=== PATIENT | male | born 1955 | race Asian ===

== ENCOUNTER 2018-01-31 09:29 | Inpatient (IN) | payer SELFPAY ==
[~2018-01-31] VITALS: Ht 165.1 cm; Wt 67.6 kg
--- NOTE | 2018-01-31 09:29 | NUR ---
PT BIBA BLS TO BED 4
[2018-01-31 09:30] VITALS: BP 131/81
--- NOTE | 2018-01-31 09:30 | NUR ---
[facility] to bed [facility] on 5150 gravely disable adult. no suicidal/homicidal. place close to nurses station
--- NOTE | 2018-01-31 09:30 | NUR ---
DR ROYAL EVALUATING AT BEDSIDE
--- NOTE | 2018-01-31 09:31 | NUR ---
MALE PT OF UNKNOWN AGE BIBA FOR 5150 FOR GRAVELY DISABLED. 5150 PLACED BY HANDY CROWDER. EMS STATES HE WAS FOUND ON [facility], HANDY CROWDER WAS UNABLE TO OBTAIN ANY IDENTIFICATION. PT HAS DISHEVELED APPEARANCE AND SPEAKS INTERMITTENT TOGOLESE. R BKA. PT IS GIVING MULTIPLE DOBs WITH NO YR. LS CLEAR THROUOUT, BS PAPOTICE X4, SKIN INTACT. NO INJURIES NOTED. ER MD MADE AWARE. WILL CONTINUE TO MONITOR .
--- NOTE | 2018-01-31 09:39 | NUR ---
XRAY AT BEDSIDE
--- NOTE | 2018-01-31 09:45 | NUR ---
LAB AT BEDSIDE
[2018-01-31 09:57] LABS: BASOPHILS % (AUTO) 0.5 % (0.0-2.0); EOSINOPHILS # (AUTO) 0.2 K/uL (0-0.4); EOSINOPHILS % (AUTO) 3.2 % (0.0-4.0); HEMATOCRIT 42.6 % (36-52); HEMOGLOBIN 13.9 g/dL (12.0-18.0); LYMPHOCYTES # (AUTO) 1.1 K/uL (2.0-11.5); LYMPHOCYTES % (AUTO) 20.5 % (20.5-51.1); MEAN CORPUSCULAR HEMOGLOBIN 30 pg (27-31); MEAN CORPUSCULAR HGB CONC 33 g/dL (33-37); MONOCYTES # (AUTO) 0.4 K/uL (0.8-1.0); MONOCYTES % (AUTO) 7.2 % (1.7-9.3); NEUTROPHILS # (AUTO) 3.8 K/uL (1.8-7.7); NEUTROPHILS % (AUTO) 68.6 % (42.2-75.2); PLATELET COUNT (AUTO) 265 K/uL (140-450); RED BLOOD CELL COUNT(AUTO) 4.58 MIL/uL (4.20-6.10); WHITE BLOOD COUNT (AUTO) 5.5 K/uL (4.8-10.8)
--- NOTE | 2018-01-31 09:59 | NUR ---
ATTEMPTED TO COMMUNICATE TO PT WITH A TELUGU TRANSLATION. MECHANICAL PROJECT ENGINEER STATED PT DID NOT SPEAK ANY TELUGU WORDS
[2018-01-31 10:01] LABS: ANION GAP 11.5 (8-16); CHLORIDE 101 mmol/L (98-107); GFR ARICAN-AMERICAN 98 mL/min (>90); GLUCOSE 176 mg/dL (74-106); POTASSIUM 3.5 mmol/L (3.5-5.1); SODIUM SERUM 136 mmol/L (136-145); UREA NITROGEN, BLOOD 12 mg/dL (7-18)
--- NOTE | 2018-01-31 10:05 | NUR ---
PT OFFERED WIPES TO CLEAN SELF.
[2018-01-31 10:16] LABS: ALBUMIN 3.7 g/dL (3.4-5.0); ASPARTATE AMINOTRANSFERASE 15 U/L (15-37); TOTAL BILIRUBIN 0.5 mg/dL (0.0-1.0)
--- NOTE | 2018-01-31 10:19 | NUR ---
PT GIVEN FOOD TRAY.
[2018-01-31 10:23] LABS: ACETAMINOPHEN < 0.5 ug/ml (10-30); SALICYLATE < 2.8 mg/dL (2.8-20.0)
--- NOTE | 2018-01-31 10:45 | NUR ---
ROSA CROWDER CALLED FOR PT ID. PD STATES THAT THEY DO NOT HAVE HIM IN THEIR SYSTEM
--- NOTE | 2018-01-31 11:10 | NUR ---
[address] ROYAL TO CALL FACILITIES DIRECTLY TO FIND PLACEMENT
--- NOTE | 2018-01-31 11:52 | NUR ---
PT IS YELLING, AND IS COMBATIVE. PT IS VERBLALLY ABUSIVE TOWARD STAFF. SECURITY WAS CALLED '
--- NOTE | 2018-01-31 11:54 | NUR ---
PT IS SPITTING AT STAFF
[2018-01-31] MEDS ORDERED: HALOPERIDOL IM 5 MG/ML VIAL IM ONE (11:55)
--- NOTE | 2018-01-31 11:55 | NUR ---
PT ATTEMPTING TO HIT STAFF WITH PERSONAL BELONGINGS
--- NOTE | 2018-01-31 12:50 | NUR ---
PT RESTING WITH EYES CLOSED, EASILY AROUSED. PT REFUSING TO PROVIDE URINE SAMPLE
[2018-01-31] MEDS ORDERED: HYDROcodone/APAP 7.5/325 MG 1 TAB PO PRN (13:50)
[2018-01-31] MEDS ORDERED: DOCUSATE SODIUM 100 MG GELCAP PO PRN (13:50)
--- NOTE | 2018-01-31 14:29 | NUR ---
PT IS REFUSING TO PROVIDE URINE SAMPLE AND IV START
[2018-01-31 14:42] LABS: CHOL/HDL RATIO 5.1 (1-4.5); MAGNESIUM 1.7 mg/dL (1.8-2.4); PHOSPHORUS 3.5 mg/dL (2.5-4.9); PROTHROMBIN TIME 10.6 secs (10.8-13.4)
--- NOTE | 2018-01-31 14:45 | NUR ---
PT ARRIVED ON THE UNIT WITH 2 ER NURSES. PT IS AWAKE. INTRODUCED MYSELF AND UPDATED THE BOARD. NOT MUCH IS KNOWN RE PT. NO NAME, NO ADDRESS, OBEYS SIMPLE COMMANDS. PT ON ROOM AIR. NO IV ACCESS. ER WAS UNABLE TO ASSESS ONE D/T PT REFUSING; PT SPEAKS IN A NOOKSACK LANGUAGE BUT UNSURE WHAT IT IS. PT HAS R BELOW THE KNEE AMPUTATION. SKIN INTACT. NO OPEN WOUNDS. OLD SCARS, HEALED OVER. PT IS SLEEPING. NO SIGNS OF DISTRESS. MRSA DONE. YELLOW SOCK ON. WILL CONTINUE TO MONITOR PT.
--- NOTE | 2018-01-31 14:54 | NUR ---
Patient will be admitted to care of DR JACOB. Admited to TELE. Will go to room 123B. Belongings list completed. Report to BRANDNE HYMAN.
[2018-01-31 15:00] VITALS: BP 125/73
[2018-01-31] MEDS: NACL 0.9% 1,000 ML IV SCH ×2 (15:55→23:47)
[2018-01-31 16:00] VITALS: BP 135/78
--- NOTE | 2018-01-31 16:45 | NUR ---
PT SLEEPING. NO SIGNS OF DISTRESS. WILL CONTINUE TO MONITOR PT.
--- NOTE | 2018-01-31 18:21 | NUR ---
PT IS MORE ALERT. ATE 100% OF DINNER. MORE RESPONSIVE. EXPLAINED TO HIM TO USE THE URINAL AND CALL US FOR BM. VERBALIZED UNDERSTANDING.
--- NOTE | 2018-01-31 19:08 | NUR ---
ENDORSED PT TO THE PAPER GOODS MACHINE SET UP OPERATOR NURSE AT BEDSIDE FOR CONTINUITY OF CARE. PT IS IN STABLE CONDITION.
--- NOTE | 2018-01-31 19:09 | NUR ---
PATIENT REPORT RECEIVED FROM MORNING NURSE AT BEDSIDE. PATIENT IS ASLEEP. NO SIGNS AND SYMPTOMS OF DISTRESS NOTED. BREATHING EVEN AND UNLABORED. RIGHT BKA NOTED. NO IV SITE DUE TO PATIENT REFUSAL. BED IN LOWEST POSITION, SIDE RAILS UP AND CALL LIGHT WITHIN REACH. WILL CONTINUE TO MONITOR
[2018-01-31] MEDS ORDERED: DEXTROSE 50% 50 ML SYR IVP PRN (19:35)
--- NOTE | 2018-01-31 19:45 | NUR ---
PATIENT LET ME CHECK BLOOD GLUCOSE. BS-284. REFUSED INSULIN. KEPT YELLING "NO,NO,NO!" NOTIFIED DR. REIS.
--- NOTE | 2018-01-31 19:50 | NUR ---
PATIENT HAD A BOWEL MOVEMENT AT THE BEDSIDE COMMODE. SHEETS WERE DIRTY SO ME AND THE PHOTOVOLTAIC TECHNICIAN TRIED TO CHANGE THEM. PATIENT REFUSED. JUMPED ON TOP OF THE BED AND STARTED YELLING AT US IN EEK LANGUAGE. WILL NOTIFY
[2018-01-31] MEDS: BLOOD GLUCOSE MONITORING 1 DEV DEV FS SCH (19:52)
[2018-01-31 20:00] VITALS: BP 121/61
--- NOTE | 2018-01-31 20:11 | NUR ---
PATIENT SEEN BY DR. REIS
--- NOTE | 2018-01-31 20:30 | NUR ---
DR REIS AWARE THAT PATIENT REFUSED IV SITE. UNABLE TO ADMINISTER MAG RIDER
[2018-01-31] MEDS ORDERED: QUEtiapine FUMARATE 100 MG TAB PO SCH ×2 (21:00→22:00)
[2018-01-31] MEDS ORDERED: MAG SULF 2000 MG/WATER PREMIX 50 ML IV SCH (21:00)
[2018-01-31] MEDS ORDERED: HALOPERIDOL IM 5 MG/ML VIAL IM SCH (21:00)
[2018-01-31] MEDS ORDERED: HALOPERIDOL IM 5 MG/ML VIAL IM PRN (21:05)
--- NOTE | 2018-01-31 22:30 | NUR ---
PATIENT HAD A BOWEL MOVEMENT IN THE RESTROOM. BEDSHEET AND CHUCKS CHANGED. GAVE PATIENT WIPES. PATIENT DID HIS OWN PERICARE. GAVE PATIENT NEW GOWN AND NEW UNDERWEAR. PATIENT TOLERATED WELL. WILL CONTINUE TO MONITOR.
--- NOTE | 2018-01-31 22:45 | NUR ---
US TECH CALLED AND SAID TO KEEP PT NPO AFTER MIDNIGHT FOR COMPLETE US ABDOMEN IN THE AM. NOTIFIED DR. REIS
[2018-02-01] VITALS: BP 125/69
--- NOTE | 2018-02-01 | NUR ---
PATIENT REFUSED CT AT THIS TIME. WILL TRY AND ASK AGAIN LATER.
--- NOTE | 2018-02-01 00:50 | NUR ---
There are no available beds open for placement at this time., will continue calling for placement .
--- NOTE | 2018-02-01 02:00 | NUR ---
CHECKED ON PATIENT. PATIENT IS ASLEEP. NO SIGNS AND SYMPTOMS OF DISTRESS NOTED. BREATHING EVEN AND UNLABORED WILL CONTINUE TO MONITOR.
[2018-02-01 05:00] VITALS: BP 148/74
[2018-02-01] MEDS: INSULIN LISPRO SLIDING SCALE 100 UNITS/ML VIAL SUBQ PRN ×2 (05:19→21:19)
--- NOTE | 2018-02-01 05:30 | NUR ---
ASKED PATIENT IF I CAN INSERT IV SITE PATIENT STATED YES. GATHERED MY MATERIALS. WHEN I CAME BACK TO THE ROOM. BRUSH PAINTER TRIED TO DRAW LABS, ATTEMPTED SEVERAL TIMES, BUT UNABLE TO DRAW BLOOD. PATIENT GOT FRUSTRATED AND STARTED YELLING. NO AM LABS DRAWN AT THIS TIME. UNABLE TO DO IV INSERTION.
[2018-02-01] MEDS: BLOOD GLUCOSE MONITORING 1 DEV DEV FS SCH ×4 (06:05→21:20)
--- NOTE | 2018-02-01 07:16 | NUR ---
PATIENT REPORT GIVEN TO MORNING NURSE AT BEDSIDE. PATIENT IS IN STABLE CONDITION
--- NOTE | 2018-02-01 07:17 | NUR ---
RECEIVED REPORT FROM LODE MINER BLASTING NURSE FOR CONTINUITY OF CARE. VS SIGNS WITHIN NORMAL LIMITS. PT FELL BACK ASLEEP AFTER VITALS WERE TAKEN. SKIN INTACT. NO IV ACCESS. NOTED R BKA. PT HAS BEEN NPO SINCE MIDNIGHT. WAITING FOR AN US OF THE ABDOMEN. UPDATED THE BOARD. NO SIGNS OF DISTRESS AND NO COMPLAINTS. WILL CONTINUE TO MONITOR.
[2018-02-01 08:00] VITALS: BP 121/57
--- NOTE | 2018-02-01 08:03 | NUR ---
PT REFUSED ABDOMINAL US. WILL PUT IN ORDERS FOR BREAKFAST.
[2018-02-01] MEDS ORDERED: SERTRALINE 50 MG TAB PO SCH (09:00)
[2018-02-01] MEDS ORDERED: risperiDONE 1 MG TAB PO SCH (09:00)
[2018-02-01] MEDS: MAGNESIUM OXIDE 400 MG TAB PO SCH (09:01)
[2018-02-01] MEDS: risperiDONE 1 MG TAB PO SCH ×4 (09:01→21:26)
--- NOTE | 2018-02-01 09:05 | NUR ---
ADMINISTERED MORNING MEDS. PT TOLERATED WELL. WILL CONTINUE TO MONITOR PT.
--- NOTE | 2018-02-01 09:09 | NUR ---
PATIENT HAS BEEN SCREENED AND CATEGORIZED MODERATE NUTRITION RISK. PATIENT WILL BE SEEN WITHIN 3-5 DAYS OF ADMISSION. 02/03/18 02/05/[address]
[2018-02-01] MEDS: NACL 0.9% 1,000 ML IV SCH ×2 (09:47→21:27)
--- NOTE | 2018-02-01 10:55 | NUR ---
PT IS IN BED ASLEEP. NO SIGNS OF DISTRESS OR DISCOMFORT. WILL CONTINUE TO MONITOR.
--- NOTE | 2018-02-01 11:45 | NUR ---
P.T. NOTES RECEIVED P.T. EVAL ORDER, CHART REVIEWED, PT FOUND ASLEEP, EASILY ROUSABLE HE RESPONDS BUT KEEPS EYES CLOSED, PATIENT IS HIGHLY IRRITABLE, STARTED TO SHOUT AFTER SEVERAL QUESTIONS ASKED. STATES HIS NAME IS "LUBA" BUT WHEN ASKED FOR LAST NAME HE MUMBLES INCOMPREHENSIBLE WORDS. THIS P.T. EXPLAINED P.T. GOAL AND RATIONALE PER MD ORDERS PT SHOUTED "NO!" STAYED IN A POSITION AND EYES KEPT CLOSED. DUE TO POOR COOPERATION DESPITE ENCOURAGEMENT UNABLE TO PERFORM P.T. EVAL AT THIS TIME. BOOGIE OTERO MADE AWARE AND AGREEABLE.
--- NOTE | 2018-02-01 12:20 | NUR ---
ADMINISTERED INSULIN 6 UNITS TO PT FOR BS OF 296. PT IS STILL RESTING COMFORTABLY AND SLEEPING. WILL CONTINUE TO MONITOR.
--- NOTE | 2018-02-01 15:00 | NUR ---
A CONTROL VALVE MECHANIC OF DR PEREZ CAME TO DO AN EVALUATION ON PT.
--- NOTE | 2018-02-01 16:00 | NUR ---
PT REFUSED VS CHECK AND BS CHECK.
--- NOTE | 2018-02-01 19:28 | NUR ---
ENDORSED PT TO CUSTOMER SERVICE TRAINER NURSE AT BEDSIDE. PT IN STABLE CONDITION.
--- NOTE | 2018-02-01 19:29 | NUR ---
RECEIVED REPORT FROM DAY SHIFT NURSE BRANDEN-BOOGIE. PATIENT IS ASLEEP. AOX1-UNKNOWN LANGUAGE, ON ROOM AIR-BREATHING EVEN AND UNLABORED. NO IV SITE DUE TO PATIENT REFUSAL. RIGHT BKA NOTED. DISCUSSED PLAN OF CARE HOWEVER UNABLE TO UNDERSTAND PT. WHITE BOARD UPDATED. BED IN LOWEST POSITION, SIDE RAILS UP, BED BREAKS ON, BED ALARM ON. BED SIDE TABLE AND CALL LIGHT WITHIN REACH. WILL CONTINUE TO MONITOR
[2018-02-01 20:00] VITALS: BP 120/58
--- NOTE | 2018-02-01 20:15 | NUR ---
VITAL SIGNS TAKEN AND TOLERATED WELL. BLOOD GLUCOSE 208-WILL ADMINISTER INSULIN. PT TOLERATED WELL. NO S/S OF RESPIRATORY DISTRESS OR DISCOMFORT NOTED AT THIS TIME. WILL CONTINUE TO MONITOR.
[2018-02-01] MEDS ORDERED: QUEtiapine FUMARATE 100 MG TAB PO SCH (21:00)
--- NOTE | 2018-02-01 21:00 | NUR ---
PT REFUSED SCHEDULED MEDICATION. NO S/S OF RESPIRATORY DISTRESS OR DISCOMFORT NOTED AT THIS TIME. WILL CONTINUE TO MONITOR.
--- NOTE | 2018-02-01 22:00 | NUR ---
ALMA LIBERTY ASSISTED PT WITH BED CHUX CHANGED THEY WERE SOILED HOWEVER PT DISLIKED IT AND ONLY WANTED TO RETURN BACK TO SLEEP. DIFFICULT TO COMMUNICATE WITH PT. WILL CONTINUE TO MONITOR.
[2018-02-02] VITALS: BP 129/66
--- NOTE | 2018-02-02 | NUR ---
VITAL SIGNS TAKEN AND TOLERATED WELL. NO S/S OF RESPIRATORY DISTRESS OR DISCOMFORT NOTED AT THIS TIME. WILL CONTINUE TO MONITOR.
--- NOTE | 2018-02-02 02:00 | NUR ---
PT SLEEPING AT THIS TIME. NO S/S OF RESPIRATORY DISTRESS OR DISCOMFORT NOTED AT THIS TIME. WILL CONTINUE TO MONITOR.
--- NOTE | 2018-02-02 04:00 | NUR ---
PT CONTINUES TO SLEEP AT THIS TIME. NO S/S OF RESPIRATORY DISTRESS OR DISCOMFORT NOTED AT THIS TIME. WILL CONTINUE TO MONITOR.
[2018-02-02] MEDS: NACL 0.9% 1,000 ML IV SCH ×2 (05:47→15:47)
--- NOTE | 2018-02-02 05:50 | NUR ---
BLOOD GLUCOSE 172-INSULIN COVERAGE NEEDED HOWEVER PT REFUSED. PT RETURNED BACK TO SLEEP. NO S/S OF RESPIRATORY DISTRESS OR DISCOMFORT NOTED AT THIS TIME. WILL CONTINUE TO MONITOR.
[2018-02-02] MEDS: BLOOD GLUCOSE MONITORING 1 DEV DEV FS SCH ×4 (06:21→21:00)
[2018-02-02 06:47] LABS: BASOPHILS # (AUTO) 0.1 K/uL (0.00-0.22); EOSINOPHILS # (AUTO) 0.2 K/uL (0-0.4); EOSINOPHILS % (AUTO) 2.7 % (0.0-4.0); HEMATOCRIT 41.8 % (36-52); HEMOGLOBIN 13.8 g/dL (12.0-18.0); LYMPHOCYTES # (AUTO) 1.6 K/uL (2.0-11.5); LYMPHOCYTES % (AUTO) 24.3 % (20.5-51.1); MEAN CORPUSCULAR HEMOGLOBIN 31 pg (27-31); MEAN CORPUSCULAR HGB CONC 33 g/dL (33-37); MEAN CORPUSCULAR VOLUME 93.5 fL (80-94); MONOCYTES # (AUTO) 0.5 K/uL (0.8-1.0); MONOCYTES % (AUTO) 8.3 % (1.7-9.3); NEUTROPHILS # (AUTO) 4.1 K/uL (1.8-7.7); NEUTROPHILS % (AUTO) 63.7 % (42.2-75.2); PLATELET COUNT (AUTO) 243 K/uL (140-450); RED BLOOD CELL COUNT(AUTO) 4.47 MIL/uL (4.20-6.10); RED CELL DISTRIBUTION WIDTH 13.8 % (11.6-13.7); WHITE BLOOD COUNT (AUTO) 6.4 K/uL (4.8-10.8)
[2018-02-02 07:16] LABS: ANION GAP 13.2 (8-16); CARBON DIOXIDE 26.8 mmol/L (21-32); CREATININE 0.9 mg/dL (0.7-1.3)
--- NOTE | 2018-02-02 07:35 | NUR ---
ENDORSED PT CARE TO DAY SHIFT NURSE GINGER-BOOGIE FOR CONTINUITY OF CARE.
[2018-02-02 08:00] VITALS: BP 142/72
--- NOTE | 2018-02-02 08:00 | NUR ---
PATIENT AWAKE, CONFUSED. RESPIRATION EVEN, UNLABOR ON ROOM AIR. SKIN DRY AND WARM. REFUSED TO HAVE STAFF DO HEAD TO TOE ASSESSMENT, OR FINISH CHECKING VITAL SIGN. PATIENT BECAME AGITATED WHEN STAFF TRIED TO EXPLAIN THE NEED FOR ASSESSMENT. WILL CONTINUE TO MONITOR
--- NOTE | 2018-02-02 09:10 | NUR ---
PT NOTE 0900 CHART REVIEWED; CLEARED TO BE SEEN FOR PT PER RN, WHO STATES THAT Pt WAS NOTED TO BE AMBULATING HOPPING FROM BATHROOM ON HIS OWN EARLIER THIS MORNING. Pt WAS SEEN ASLEEP BUT RESPONDS TO QUESTIONS, MAINTAINED EYES CLOSED. Pt REFUSED TO BE SEEN FOR PT EVAL DESPITE OF EDUCATION ON BENEFIT OF OOB PARTICIPATION WITH PHYSICAL THERAPY. WILL FOLLOW UP W/Pt, RN NOTIFIED.
[2018-02-02] MEDS: MAGNESIUM OXIDE 400 MG TAB PO SCH (09:17)
[2018-02-02] MEDS: risperiDONE 1 MG TAB PO SCH ×2 (09:17→21:00)
--- NOTE | 2018-02-02 12:16 | NUR ---
PATIENT REFUSED TO HAVE INSULIN GIVEN. RISKS OF HIGH BLOOD SUGAR WERE EXPLAINED TO THE PATIENT. PATIENT STARTED SCREAMING NO INSULIN.
--- NOTE | 2018-02-02 14:40 | NUR ---
PATIENT IS SLEEPING COMFORTABLY. RESPIRATION EVEN, UNLABOR ON ROOM AIR. NO DISTRESS NOTED AT THIS TIME
[2018-02-02 16:00] VITALS: BP 141/66
--- NOTE | 2018-02-02 16:00 | NUR ---
[facility] aware patient is on a 5150 hold. Not much information is being faxed over due to unknown information on the patient. No update on contacted facilities at this time. Will update [facility] when new information has been received.
--- NOTE | 2018-02-02 16:44 | NUR ---
PATIENT IS SLEEPING COMFORTABLY. RESPIRATION EVEN, UNLABOR ON ROOM AIR. DENIED PAIN AT THIS TIME. NO DISTRESS NOTED. CONTINUED TO REFUSE INSULIN, WILL NOTIFY
--- NOTE | 2018-02-02 17:54 | NUR ---
PATIENT REFUSED TO TAKE PO MED FOR HYPERGLYCEMIA. MD WAS AT BEDSIDE, EXPLAINED RISKS AND BENEFITS TO THE PATIENT. PATIENT CONTINUED VERBALIZING "NO".
--- NOTE | 2018-02-02 18:23 | NUR ---
PATIENT IS SLEEPING COMFORTABLY. RESPIRATION EVEN, UNLABOR ON ROOM AIR. NO DISTRESS NOTED AT THIS TIME. CALL LIGHT WITHIN REACH.
--- NOTE | 2018-02-02 19:14 | NUR ---
ENDORSEMENT GIVEN TO THE EQUESTRIAN TRAINER NURSE. PATIENT IS STABLE AT THIS TIME
--- NOTE | 2018-02-02 19:15 | NUR ---
RECEIVED REPORT FROM DAY SHIFT NURSE ERVIN-BOOGIE. PATIENT IS ASLEEP. AOX1-UNKNOWN LANGUAGE, ON ROOM AIR-BREATHING EVEN AND UNLABORED. NO IV SITE DUE TO PATIENT REFUSAL. RIGHT BKA NOTED. DISCUSSED PLAN OF CARE HOWEVER UNABLE TO UNDERSTAND PT. WHITE BOARD UPDATED. BED IN LOWEST POSITION, SIDE RAILS UP, BED BREAKS ON, BED ALARM ON. BED SIDE TABLE AND CALL LIGHT WITHIN REACH. PT REQUESTING ICE WATER FROM WHAT UNDERSTOOD. WILL PROVIDE AND CONTINUE TO MONITOR
--- NOTE | 2018-02-02 19:40 | NUR ---
PT REFUSING VITAL SIGNS AND BLOOD GLUCOSE CHECK. CONTINUES TO YELL "NO!" CHARGE NURSE MOLLY MUIR. WILL CONTINUE TO MONITOR.
--- NOTE | 2018-02-02 20:42 | NUR ---
PT CONTINUES TO REFUSE VITAL SIGNS, BLOOD GLUCOSE CHECK AND SCHEDULED MEDICATION. PT RESTING IN BED. NO S/S OF RESPIRATORY DISTRESS OR DISCOMFORT NOTED AT THIS TIME. WILL CONTINUE TO MONITOR.
--- NOTE | 2018-02-02 21:32 | NUR ---
PT CONTINUES TO REFUSE VITAL SIGNS, BLOOD GLUCOSE CHECKS AND SCHEDULED MEDICATION. KATARINA FARM FACILITY MANAGER ALSO TIRED TO SPEAK TO PT AND HE CONTINUES TO REFUSE. WILL CONTINUE TO MONITOR.
--- NOTE | 2018-02-03 | NUR ---
PT CONTINUES TO REFUSE VITAL SIGNS, BLOOD GLUCOSE CHECK AND SCHEDULED MEDICATION. PT CONTINUES TO SLEEP. NO S/S OF RESPIRATORY DISTRESS OR DISCOMFORT NOTED AT THIS TIME. WILL CONTINUE TO MONITOR.
--- NOTE | 2018-02-03 01:11 | NUR ---
[facility] IS TRYING TO LOCATE FACILITY. THERE HAVE BEEN NO UPDATES MADE TO NAME.
--- NOTE | 2018-02-03 01:20 | NUR ---
HOLD TO 02/03 AT 8:30AM. I CONTACTED MOLLY ON UNIT AND ADVISED.
[2018-02-03] MEDS: NACL 0.9% 1,000 ML IV SCH ×3 (01:47→21:47)
--- NOTE | 2018-02-03 02:00 | NUR ---
PT CONTINUES TO SLEEP IN BED. NO S/S OF RESPIRATORY DISTRESS OR DISCOMFORT NOTED AT THIS TIME. WILL CONTINUE TO MONITOR.
--- NOTE | 2018-02-03 04:00 | NUR ---
PT CONTINUES TO SLEEP IN BED. NO S/S OF RESPIRATORY DISTRESS OR DISCOMFORT NOTED AT THIS TIME. WILL CONTINUE TO MONITOR.
--- NOTE | 2018-02-03 05:33 | NUR ---
PT REFUSED BLOOD DRAW.
[2018-02-03] MEDS: BLOOD GLUCOSE MONITORING 1 DEV DEV FS SCH ×4 (06:17→20:25)
--- NOTE | 2018-02-03 06:18 | NUR ---
PT CONTINUES TO REFUSE BLOOD GLUCOSE CHECK, VITAL SIGNS AND MEDICATIONS. WILL CONTINUE TO MONITOR.
--- NOTE | 2018-02-03 07:20 | NUR ---
ENDORSED PT CARE TO DAY SHIFT NURSE YOU FOR CONTINUITY OF CARE.
--- NOTE | 2018-02-03 07:25 | NUR ---
RECEIVED REPORT FROM LAUNDRY PRICING CLERK NURSE, PT IS SLEEPING IN BED BUT EASILY AWAKEN, PT IS AAOX1, PT IS UNABLE TO AMBULATE, PT HAS A RT BELOW THE KNEE AMPUTATION, PT HAS NO IV ACCESS, NO S/S OF RESPIRATORY DISTRESS OR DISCOMFORT NOTED, DISCUSSED PLAN OF CARE WITH PT, PT UNABLE TO COMPREHEND, SAFETY/FALL PRECAUTIONS ARE IN PLACE, CALL LIGHT IS WITHIN REACH, WILL CONTINUE TO MONITOR.
--- NOTE | 2018-02-03 07:50 | NUR ---
RECEIVED REPORT FROM OPHTHALMIC PATHOLOGIST NURSE, PT IN BED EATING BREAKFAST, UPDATED BOARD, INTRODUCED SELF, SHOWED HOW TO USE CALL LIGHT, EXPLAINED PLAN OF CARE, WILL CONTINUE TO MONITOR.
[2018-02-03 08:00] VITALS: BP 148/89
[2018-02-03] MEDS: risperiDONE 1 MG TAB PO SCH ×2 (09:00→20:26)
[2018-02-03] MEDS: MAGNESIUM OXIDE 400 MG TAB PO SCH (09:00)
--- NOTE | 2018-02-03 09:15 | NUR ---
PT REFUSED ALL MEDS, PT STATED "NO" WHEN OFFERED MEDS. WILL CONTINUE TO MONITOR, CALL LIGHT WITHIN REACH.
--- NOTE | 2018-02-03 10:44 | NUR ---
Spoke to BOOGIE López in Tele Unit. We acknowledge that patients 5150 has today and that the MD's are making their rounds and plan of care orders today. Aware that their might be a language barrier and that patient at this time is not totally medically cleared. BOOGIE López will call back with update on how we will continue to assist in finding for placement if a new 5150 has been written for patient.
--- NOTE | 2018-02-03 12:15 | NUR ---
PT SITTING UP EATING LUNCH, REFUSED ALL MEDICATIONS, EDUCATED ABOUT PURPOSE AND NEED FOR MEDICATIONS, PT STATES< "NO THANK YOU." CALL LIGHT WITHIN REACH, BED IN LOWEST POSITION, WILL CONTINUE FREQ CHECKS.
--- NOTE | 2018-02-03 12:45 | NUR ---
CALL FROM [facility], SPOKE WITH BENITO, HE WANTED TO FOLLOW UP WITH PLAN OF CARE FOR PT REGARDING PLACEMENT AND STATUS OF 2ND PSY CONSULTATION. EXPLAINED WILL FOLLOW UP AND CALL BACK ONCE MORE INFORMATION IS COLLECTED FROM PT AND PLAN OF CARE IS UPDATED. BENITO: PHONE: FAX:
--- NOTE | 2018-02-03 13:24 | NUR ---
Chart reviewed by case investigator.
--- NOTE | 2018-02-03 15:00 | NUR ---
SPOKE TO DR. BERRY AND ASKED HIM IF THE PATIENT HAD HIS SECOND PSYCH EVALUATION DONE. PER DR. BERRY, PT HAS NOT HAD THE SECOND EVAL YET BUT HE DID NOTIFY THE [facility] DOCTOR ABOUT THE SECOND EVAL.
[2018-02-03 16:00] VITALS: BP 140/68
--- NOTE | 2018-02-03 16:00 | NUR ---
PT WROTE DOWN THAT NAME IS "DANDY" AND "12/28/1916. WILL CONTINUE TO COLLECT INFORMATION.
--- NOTE | 2018-02-03 16:33 | NUR ---
CALL EILEEN FROM [facility], UPDATED THAT PT IS TO BE RE-EVALUATED FOR 5150. EXPLAINED THAT PT STATED HIS NAME/, HOWEVER EILEEN REQUESTED THAT WE SEND A FACESHEET VIA FAX ONCE PSY CONSULTATION IS CLEARED, ALSO PLEASE INDICATE CHARLES ADDITIONAL INFORMATION ONCE COLLECTED. PHONE: FAX:
--- NOTE | 2018-02-03 19:26 | NUR ---
REPORT GIVEN TO CLOTH BALE HEADER NURSE, PT STABLE, WILL CONTINUE PLAN OF CARE.
--- NOTE | 2018-02-03 20:45 | NUR ---
PATIENT REFUSED HEPARIN. EDUCATED PATIENT ON MEDICATION, PATIENT STILL REFUSED
--- NOTE | 2018-02-03 20:45 | NUR ---
BLOOD GLUCOSE CHECKED, 304. PATIENT REFUSED INSULIN. DR. REIS AWARE
[2018-02-04] VITALS: BP 151/68
--- NOTE | 2018-02-04 00:20 | NUR ---
CHECKED ON PATIENT. PATIENT IS RESTING COMFORTABLY IN BED WATCHING TV. NO SIGNS AND SYMPTOMS OF DISTRESS NOTED. BREATHING EVEN AND UNLABORED. WILL CONTINUE TO MONITOR.
--- NOTE | 2018-02-04 02:45 | NUR ---
CHECKED ON PATIENT. PATIENT IS ASLEEP. NO SIGNS AND SYMPTOMS OF DISTRESS NOTED. BREATHING EVEN AND UNLABORED. WILL CONTINUE TO MONITOR.
--- NOTE | 2018-02-04 05:00 | NUR ---
PATIENT REFUSED GLUCOSE CHECKS
[2018-02-04] MEDS: BLOOD GLUCOSE MONITORING 1 DEV DEV FS SCH ×4 (05:56→21:00)
--- NOTE | 2018-02-04 07:19 | NUR ---
PATIENT REPORT GIVEN TO MORNING NURSE AT BEDSIDE. PATIENT IS IN STABLE CONDITION
--- NOTE | 2018-02-04 07:20 | NUR ---
RECEIVED REPORT FROM FITNESS AND WELLNESS INSTRUCTOR NURSE AT BEDSIDE. PT IS RESTING COMFORTABLY IN BED AND AWAKE. PT HAS R BKA. NO SIGNS OF DISTRESS. BED IS IN LOW POSITION AND SIDE RAILS UP X2. CALL LIGHT WITHIN REACH. UPDATED BOARD. WILL CONTINUE TO MONITOR.
[2018-02-04] MEDS: NACL 0.9% 1,000 ML IV SCH (07:47)
[2018-02-04 08:00] VITALS: BP 134/63
[2018-02-04] MEDS: risperiDONE 1 MG TAB PO SCH (08:35)
[2018-02-04] MEDS: MAGNESIUM OXIDE 400 MG TAB PO SCH (08:35)
--- NOTE | 2018-02-04 08:41 | NUR ---
ADMINISTERED MORNING MEDS. PT REFUSED HEPARIN. PT IS EATING BREAKFAST. NO SIGNS OF DISTRESS. WILL CONTINUE TO MONITOR.
--- NOTE | 2018-02-04 09:21 | NUR ---
SPOKE WITH DIETARY, CHANGING PT DIET TO CCHO DUE TO HIGH BLOOD SUGARS. ALREADY AWARE.
--- NOTE | 2018-02-04 09:39 | NUR ---
02/04/18 RD INITIAL ASSESSMENT COMPLETED PLEASE REFER TO NUTRITION ASSESSMENT UNDER CARE ACTIVITY FOR ESTIMATED NUTRITIONAL NEEDS. RD RECOMMENDATIONS: 1- RECOMMEND CHANGE DIET FROM REGULAR TO 60G CCHO DIET 2- F/U 3-5 DAYS; MODERATE RISK MAHENDRA LOZA MBA, RD
--- NOTE | 2018-02-04 10:54 | NUR ---
PT IS IN BED WATCHING TV. NO SIGNS OF DISTRESS. WILL CONTINUE TO MONITOR.
--- NOTE | 2018-02-04 11:10 | NUR ---
PT REFUSED TO HAVE BLOOD SUGAR CHECKED. WILL CONTINUE TO MONITOR.
--- NOTE | 2018-02-04 11:22 | NUR ---
FAXED OVER THE FACE SHEET FOR PT TO THE [facility], ATTN: BENITO. STILL AWAITING RE-ASSESSMENT FROM DR. SPARKS.
--- NOTE | 2018-02-04 12:00 | NUR ---
Spoke to programmer analyst health it from Med[facility]urg [facility]. Received Updated facesheet for patient, that still has "Dennis Dyson" information. Was told patient still meets criteria for a 5150 but is not currently on a 5150 at this time. Initial 5150 has been since 02/03. Pt still + for Language Barrier, Awake and Alert to name, Hx of Refusing care, and refusing to give information. Will continue to search for placement for patient with Information given to us thus far. will contact Unit when a facility has accepted patient. [facility] was told per policy another 5150 will be eval and written once the patient has bed placement, if found contact unit.
--- NOTE | 2018-02-04 13:38 | NUR ---
PT IS RESTING COMFORTABLY IN BED WATCHING TV. NO SIGNS OF DISTRESS. WILL CONTINUE TO MONITOR.
[2018-02-04 16:00] VITALS: BP 119/80
--- NOTE | 2018-02-04 16:20 | NUR ---
PT REFUSED TO HAVE BS CHECKED. NO SIGNS OF DISTRESS. WILL CONTINUE TO MONITOR.
[2018-02-04] MEDS: metFORMIN 500 MG TAB PO SCH (17:15)
--- NOTE | 2018-02-04 17:16 | NUR ---
ADMINISTERED EVENING MEDS TO PT. PT TOLERATED WELL. WILL CONTINUE TO MONITOR.
--- NOTE | 2018-02-04 17:44 | NUR ---
No Bed availabilities at [facility], [facility], [facility], [facility], [facility], [facility], [facility], [facility] and [facility]. Will endorse to table games shift manager to continue looking for placement.
--- NOTE | 2018-02-04 19:17 | NUR ---
ENDORSED PT TO MOTOR INSPECTION MECHANIC NURSE FOR CONTINUITY OF CARE. PT IN STABLE CONDITION.
--- NOTE | 2018-02-04 19:18 | NUR ---
RECEIVED PT IN STABLE CONDITION FROM AM NURSE. AWAKE,ALERT AND ORIENTED X2-3. ON MED SURG. WITH NO DISTRESS NOR DISCOMFORT NOTED. NO IV ACCESS AND AM NURSE SAID MD AWARE THAT PT REFUSED TO HAVE ONE . HAS RT LKA. SKIN INTACT. BED ON LOWEST POSITION, CALL LIGHT AND URINAL PACED WITHIN EASY REACH. FREQUENT ROUNDS NEEDED. WILL CONTINUE TO MONITOR.
--- NOTE | 2018-02-04 21:00 | NUR ---
UNABLE TO CHECK BLOOD SUGAR. ASLEEP. AND GOT MAD EARLIER WHEN ASKED. WILL TRY LATER.
--- NOTE | 2018-02-04 22:00 | NUR ---
STILL SLEEPING. NIGHT MEDS ON HOLD . WILL TRY LATER.
[2018-02-05] MEDS: BLOOD GLUCOSE MONITORING 1 DEV DEV FS SCH ×4 (00:01→21:07)
[2018-02-05] MEDS: TEMAZEPAM 15 MG CAP PO SCH ×2 (00:02→21:08)
[2018-02-05] MEDS: risperiDONE 1 MG TAB PO SCH ×3 (00:03→21:08)
--- NOTE | 2018-02-05 00:03 | NUR ---
AWAKE. ABLE TO GET VITAL SIGNS. STABLE. BLOOD SUGAR ALSO ABLE TO GET 175. BUT REFUSED ANY INSULIN. NIGHT MEDS ALSO GIVEN . WILL CONITNUE TO MONITOR.
[2018-02-05 00:36] VITALS: BP 114/63
--- NOTE | 2018-02-05 02:00 | NUR ---
MADE ROUNDS. SLEEPING. NO S/S OF NAY DISCOMFORT NOTED.
--- NOTE | 2018-02-05 06:09 | NUR ---
BLOOD SUGAR THIS AM RESULT 192. PT REFUSED INSULIN COVERAGE.
--- NOTE | 2018-02-05 07:21 | NUR ---
ENDORSED PT IN STABLE CONDITION TO AM NURSE FOR CONTINUITY OF CARE.
--- NOTE | 2018-02-05 07:23 | NUR ---
RECEIVED REPORT FROM FORENSIC MATERIALS ENGINEER RN. PATIENT IS RESTING COMFORTABLY IN BED, AROUSABLE BY VOICE. AAOX2. NO SIGNS OR SYMPTOMS OF DISTRESS. LUNGS CTA IN ALL CHAMBERS. HEART RHYTHM IS REGULAR, S1 AND S2 NOTED. PATIENT REFUSES IV ACCESS. ALL SAFETY MEASURES IN PLACE, CALL LIGHT WITHIN REACH. WILL CONTINUE TO MONITOR.
[2018-02-05 08:00] VITALS: BP 126/63
[2018-02-05] MEDS: metFORMIN 500 MG TAB PO SCH ×2 (08:34→16:54)
[2018-02-05] MEDS: MAGNESIUM OXIDE 400 MG TAB PO SCH (08:35)
--- NOTE | 2018-02-05 10:00 | NUR ---
PATIENT IS RESTING COMFORTABLY IN BED, AROUSABLE BY VOICE. ALL SAFETY MEASURES IN PLACE, CALL LIGHT WITHIN REACH. WILL CONTINUE TO MONITOR.
--- NOTE | 2018-02-05 13:10 | NUR ---
PATIENT IS RESTING COMFORTABLY IN BED. DENIES PAIN AT THIS TIME. NO SIGNS OR SYMPTOMS OF DISTRESS. ALL SAFETY MEASURES IN PLACE, CALL LIGHT WITHIN REACH. WILL CONTINUE TO MONITOR.
[2018-02-05 16:00] VITALS: BP 142/83
--- NOTE | 2018-02-05 16:25 | NUR ---
PATIENT IS RESTING COMFORTABLY IN BED. BLOOD SUGAR READING WAS 174. PATIENT REFUSES HUMALOG COVERAGE. WILL CONTINUE TO MONITOR.
--- NOTE | 2018-02-05 18:15 | NUR ---
PATIENT IS RESTING IN BED. NO DISTRESS NOTED. CONDITION UNCHANGED. WILL CONTINUE TO MONITOR.
--- NOTE | 2018-02-05 19:23 | NUR ---
ENDORSED PLAN OF CARE TO CABLE MAKER RN. PATIENT IS IN STABLE CONDITION.
--- NOTE | 2018-02-05 19:24 | NUR ---
RECEIVED PT IN STABLE CONDITION FROM AM NURSE. ASLEEP BUT EASILY AROUSE WHEN NAME CALLED. ON MED SURG. WITH NO C/O ANY DISCOMFORT NOR PAIN NOTED. NO IV ACCESS , PT KEEP ON REFUSING TO HAVE ONE IN. PT WITH RT BKA . ABLE TO HOP IN BATHROOM. CALL LIGHT PLACED WITHIN EASY REACH,INSTRUCTED TO CALL FOR ASSIST. BED PLACED IN THE LOWEST POSITION. SIDE RAILS UP X2. WILL CONITNUE TO MONITOR.
--- NOTE | 2018-02-05 20:17 | NUR ---
BLOOD SUGAR WAS CHECKED RESULT 194. REFUSED ANY INSULIN. HAD SOME SNACK . WILL CONITNUE TO MONITOR.
--- NOTE | 2018-02-05 22:00 | NUR ---
MADE ROUNDS. PT IS ASLEEP.NO S/S OF ANY DISCOMFORT NOTED.
--- NOTE | 2018-02-06 00:10 | NUR ---
PT ASLEEP. DOESN'T WANT VITAL SIGNS TAKEN AT THIS TIME. SHE PREFER TO SLEEP.
--- NOTE | 2018-02-06 02:00 | NUR ---
PT SLEEPING PEACEFULLY NO S/S OF PAIN OR DISTRESS NOTED. PT IN LOW BED WITH CALL MARTE IN REACH.
--- NOTE | 2018-02-06 03:15 | NUR ---
At this time there are no available beds at any of the designated facilities , will continue to find placement .
--- NOTE | 2018-02-06 06:00 | NUR ---
PT SLEPT WELL DURING THE NIGHT. THEN LAB WAS DRAWN THIS AM. WILL FOLLOW UP RESULT.
--- NOTE | 2018-02-06 07:10 | NUR ---
ENDORSED PT IN STABLE CONDITION TO AM NURSE FOR CONTINUITY OF CARE.
--- NOTE | 2018-02-06 07:12 | NUR ---
RECEIVED BEDSIDE REPORT FROM PRIVACY OFFICER NURSE. PATIENT IS AWAKE AND HE IS CONFUSED. HE STATES HIS NAME IS JASON BAILON AND HE IS 89YEARS OLD. HE SHOWS NO SIGNS OF DISTRESS ON ROOM AIR. HE HAS A BEDSIDE COMMODE. NO IV ACCESS. SKIN IS INTACT. R BKA, LITTLE EDEMA, NON PITTING. BED IN LOW POSITION. CALL LIGHT WITHIN REACH. WILL CONTINUE TO MONITOR THE PATIENT.
[2018-02-06 07:23] LABS: BASOPHILS # (AUTO) 0.1 K/uL (0.00-0.22); BASOPHILS % (AUTO) 0.8 % (0.0-2.0); EOSINOPHILS # (AUTO) 0.2 K/uL (0-0.4); EOSINOPHILS % (AUTO) 2.6 % (0.0-4.0); HEMATOCRIT 41.4 % (36-52); HEMOGLOBIN 13.6 g/dL (12.0-18.0); LYMPHOCYTES # (AUTO) 1.5 K/uL (2.0-11.5); MEAN CORPUSCULAR HEMOGLOBIN 31 pg (27-31); MEAN CORPUSCULAR HGB CONC 33 g/dL (33-37); MEAN CORPUSCULAR VOLUME 93.1 fL (80-94); MONOCYTES # (AUTO) 0.5 K/uL (0.8-1.0); MONOCYTES % (AUTO) 8.1 % (1.7-9.3); NEUTROPHILS # (AUTO) 4.2 K/uL (1.8-7.7); NEUTROPHILS % (AUTO) 65.5 % (42.2-75.2); PLATELET COUNT (AUTO) 214 K/uL (140-450); RED BLOOD CELL COUNT(AUTO) 4.45 MIL/uL (4.20-6.10); RED CELL DISTRIBUTION WIDTH 13.8 % (11.6-13.7); WHITE BLOOD COUNT (AUTO) 6.4 K/uL (4.8-10.8)
[2018-02-06 07:48] LABS: ANION GAP 10.9 (8-16); CARBON DIOXIDE 28.5 mmol/L (21-32); POTASSIUM 4.4 mmol/L (3.5-5.1)
[2018-02-06 08:00] VITALS: BP 139/88
[2018-02-06] MEDS: BLOOD GLUCOSE MONITORING 1 DEV DEV FS SCH ×4 (08:12→21:00)
[2018-02-06 08:25] LABS: MAGNESIUM 1.9 mg/dL (1.8-2.4); PHOSPHORUS 4.7 mg/dL (2.5-4.9)
[2018-02-06] MEDS: metFORMIN 850 MG TAB PO SCH ×2 (08:59→17:23)
[2018-02-06] MEDS: risperiDONE 1 MG TAB PO SCH ×2 (08:59→21:00)
[2018-02-06] MEDS: MAGNESIUM OXIDE 400 MG TAB PO SCH (09:00)
--- NOTE | 2018-02-06 09:01 | NUR ---
ADMINISTERED MEDS. PATIENT TOLERATED WELL. DID NOT GIVE MAGNESIUM D/T NORMAL MAGNESIUM LEVEL. BED IN LOW POSITION. WILL CONTINUE TO MONITOR THE PATIENT
--- NOTE | 2018-02-06 09:58 | NUR ---
[facility] RECEIVED SHIFT REPORT. WILL CONTINUE TO MONITOR FOR BED PLACEMENT.
[2018-02-06] MEDS: INSULIN LISPRO SLIDING SCALE 100 UNITS/ML VIAL SUBQ PRN (11:48)
--- NOTE | 2018-02-06 11:48 | NUR ---
PATIENT REFUSED INSULIN. HE STATES HE DOES NOT WANT ANY INJECTIONS. EXPLAINED TO THE PATIENT THAT RISKS. HE STILL REFUSED INSULIN. WILL CONTINUE TO MONITOR THE PATIENT.
--- NOTE | 2018-02-06 13:58 | NUR ---
PATIENT IS ASKING FOR MORE FOOD. RODGER, SUPERVISOR LIQUID YEAST CALLED [facility] FOR ANY OTHER FOOD THEY CAN GIVE HIM. BED IN LOW POSITION. CALL LIGHT WITHIN REACH. WILL CONTINUE TO MONITOR THE PATIENT.
--- NOTE | 2018-02-06 14:10 | NUR ---
PATIENT AMBULATED AROUND THE CALERO X1. HE TOLERATED WELL USING A WALKER. GAIT IS STEADY. WILL CONTINUE TO MONITOR THE PATIENT.
--- NOTE | 2018-02-06 15:41 | NUR ---
PATIENT IS SLEEPING. NO SIGNS OF DISTRESS ON ROOM AIR. BED IN LOW POSITION. CALL LIGHT WITHIN REACH. WILL CONTINUE TO MONITOR THE PATIENT.
[2018-02-06 16:00] VITALS: BP 109/72
--- NOTE | 2018-02-06 17:25 | NUR ---
ADMINISTERED MEDS. PATIENT TOLERATED WELL. BED IN LOW POSITION. CALL LIGHT WITHIN REACH. WILL CONTINUE TO MONITOR THE PATIENT.
--- NOTE | 2018-02-06 19:20 | NUR ---
GAVE BEDSIDE REPORT TO BURN OUT SCARFING OPERATOR NURSE. PATIENT IS IN STABLE CONDITION.
--- NOTE | 2018-02-06 19:21 | NUR ---
REPORT RECEIVED FROM DORETHA RN DAY SHIFT NURSE FOR TRANSFER OF CARE AT BEDSIDE. PT IN STABLE CONDITION. PT AOX 1. IN LOW BED WITH SIDE RAILS UP. PT NOTED TO HAVE R BKA STOMP APPEARED TO HAVE SOME SWELLING. PT HAD NO S/S OF PAIN OR DISTRESS NOTED.
[2018-02-06 20:00] VITALS: BP 137/75
[2018-02-06] MEDS: TEMAZEPAM 15 MG CAP PO SCH (20:00)
--- NOTE | 2018-02-06 21:00 | NUR ---
PT SEEN AMBULATING TO BATHROOM INDEPENDENTLY.
--- NOTE | 2018-02-06 21:30 | NUR ---
PT STATRED ALBERTO AT STAFF NURSE WHEN SHE TOUCHED THE BACK OF PT GOWN BECAUSE SHE SUSPECTED THAT UNDERWEAR WAS SOILED AND OFFERED TO HELP HIM CHANGE PT BECAME VERY AGGITATED AND DECLINED ALL MEDS AND FINGER STICK..
--- NOTE | 2018-02-06 23:35 | NUR ---
Spoke to Lis HYMAN ,Discussed the pt at this time is not appropriate for placement due to urine tox results are not done and the lack of beds availability for placement at any designated facility.
--- NOTE | 2018-02-07 01:34 | NUR ---
OJ FROM [facility] CALLED ASKING FOR ANOTHER [phone] [facility]. FAXED [phone] YOUNG.
[2018-02-07] MEDS: BLOOD GLUCOSE MONITORING 1 DEV DEV FS SCH ×4 (05:25→20:43)
--- NOTE | 2018-02-07 05:27 | NUR ---
PT WITNESSED GOING TO TOILET BY HIMSELF AND AMBULATING BACK TO BED. PT EFUSES ALL MEDS AND MORNING F/S
--- NOTE | 2018-02-07 07:20 | NUR ---
TRANSFER PT OF CARE AT BEDSIDE TO DAYSHIFT NURSE, PT IN STABLE CONDITION.
--- NOTE | 2018-02-07 07:21 | NUR ---
RECEIVED BEDSIDE REPORT FROM REGISTERED DIET TECHNICIAN NURSE. PATIENT IS SLEEPING. NO SIGNS OF DISTRESS ON ROOM AIR. PATIENT HAS NO IV ACCESS, HE REFUSED. AMBULATES WITH WALKER. GAIT IS STEADY. 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 PATIENT IS AWAITING A PSYCH FACILITY. BED IN LOW POSITION. CALL LIGHT WITHIN REACH. WILL CONTINUE TO MONITOR THE PATIENT,. BEDSIDE COMMODE AT BEDSIDE.
[2018-02-07 08:00] VITALS: BP 155/80
[2018-02-07] MEDS: metFORMIN 850 MG TAB PO SCH ×2 (08:52→17:37)
[2018-02-07] MEDS: risperiDONE 1 MG TAB PO SCH ×2 (08:53→20:46)
--- NOTE | 2018-02-07 08:54 | NUR ---
ADMINISTERED MEDS. PATIENT TOLERATED WELL. BED IN LOW POSITION. CALL LIGHT WITHIN REACH, WILL CONTINUE TO MONITOR THE PATIENT.
--- NOTE | 2018-02-07 11:00 | NUR ---
PATIENT IS SLEEPING. NO SIGNS OF DISTRESS. WILL CONTINUE TO MONITOR THE PATIENT.
--- NOTE | 2018-02-07 13:00 | NUR ---
PATIENT FINISHED EATING LUNCH BUT WANTS MORE. [facility] SAYS NO EXTRA TRAYS [facility] WILL GIVE HIM MORE COFFEE AND WATER. BED IN LOW POSITION. CALL LIGHT WITHIN REACH.
--- NOTE | 2018-02-07 14:00 | NUR ---
PATIENT REFUSED BS CHECK FROM STUDENT NURSE. WILL CHECK AGAIN LATER.
[2018-02-07 14:05] LABS: BARBITURATE, URINE NEG. ng/ml (NEG <=200); BENZODIAZEPINE, URINE NEG. ng/mL (NEG <=200); CANNABINOID, URINE NEG. ng/mL (NEG <=50); COCAINE, URINE NEG. ng/mL (NEG <=300); OPIATE, URINE NEG. ng/mL (NEG <=2000); PHENCYCLIDINE SCREEN,URINE NEG. ng/mL (NEG <=25)
--- NOTE | 2018-02-07 14:16 | NUR ---
P.T. NOTES D/C FROM P.T. AFTER TX; NURSING TO AMBULATE PATIENT AD CHIRAG Addendum: 02/07/18 at 1416 by Kendra Kamara PT Amended: Links added.
--- NOTE | 2018-02-07 15:09 | NUR ---
No beds at this time. Will continue to follow up.
[2018-02-07 16:00] VITALS: BP 117/69
--- NOTE | 2018-02-07 17:40 | NUR ---
ADMINISTERED MEDS. PATIENT TOLERATED WELL. BED IN LOW POSITION. CALL LIGHT WITHIN REACH.
--- NOTE | 2018-02-07 18:12 | NUR ---
CALLED CARROL AT [phone]. SHES FROM [facility]. SHE WANTED ME TO TELL HER THE RESULTS OF THE TOXICOLOGY AND TOLD HER THE RESULTS. PATIENT WILL BE ABLE TO BE TRANSFERRED NOW THAT SHE KNOWS IT IS NEGATIVE.
--- NOTE | 2018-02-07 18:45 | NUR ---
PATIENT AMBULATED AROUND THE CALERO WITH THE WALKER. PATIENTS GAIT IS STEADY. PATIENT IS BACK IN BED. BED IN LOW POSITION. CALL LIGHT WITHIN REACH.
--- NOTE | 2018-02-07 19:25 | NUR ---
GAVE BEDSIDE REPORT TO WASTEWATER TREATMENT PLANT CHEMIST NURSE. PATIENT IS IN STABLE CONDITION.
--- NOTE | 2018-02-07 19:26 | NUR ---
PATIENT REPORT RECEIVED FROM MORNING NURSE AT BEDSIDE. PATIENT IS CURRENTLY ASLEEP, BUT EASY TO AWAKEN. NO SIGNS AND SYMPTOMS OF DISTRESS NOTED. BREATHING EVEN AND UNLABORED. NO IV SITE NOTED DUE TO PATIENT REFUSAL. BED IN LOWEST POSITION, SIDE RAILS UP AND CALL LIGHT WITHIN REACH. WILL CONTINUE TO MONITOR
[2018-02-07] MEDS: TEMAZEPAM 15 MG CAP PO SCH (20:46)
--- NOTE | 2018-02-07 21:00 | NUR ---
PATIENT REFUSED INSULIN. BS-164. DR MUIR
--- NOTE | 2018-02-07 21:00 | NUR ---
MEDICATION EDUCATION GIVEN. PATIENT VERBALIZED UNDERSTANDING. MEDICATION GIVEN ORDERED. PATIENT TOLERATED WELL. WILL CONTINUE TO MONITOR
[2018-02-08] VITALS: BP 104/56
--- NOTE | 2018-02-08 | NUR ---
CHECKED ON PATIENT. PATIENT IS ASLEEP. NO SIGNS AND SYMPTOMS OF DISTRESS NOTED. BREATHING EVEN AN UNLABORED. WILL CONTINUE TO MONITOR
--- NOTE | 2018-02-08 02:00 | NUR ---
CHECKED ON PATIENT. PATIENT IS ASLEEP. NO SIGNS AND SYMPTOMS OF DISTRESS NOTED. BREATHING EVEN AND UNLABORED. WILL CONTINUE TO MONITOR
--- NOTE | 2018-02-08 02:36 | NUR ---
At this time there no vacancy at any designated facilities , will continue to call for placement.
--- NOTE | 2018-02-08 04:00 | NUR ---
PATIENT IS ASLEEP. NO SIGNS AND SYMPTOMS OF DISTRESS NOTED. BREATHING EVEN AND UNLABORED. WILL CONTINUE TO MONITOR
[2018-02-08] MEDS: BLOOD GLUCOSE MONITORING 1 DEV DEV FS SCH ×4 (06:10→20:39)
--- NOTE | 2018-02-08 07:30 | NUR ---
PATIENT REPORT GIVEN TO MORNING NURSE AT BEDSIDE. PATIENT IS IN STABLE CONDITION.
--- NOTE | 2018-02-08 07:31 | NUR ---
REPORT RECEIVED FROM RESEARCH SUPPORT SPECIALIST, PT SLEEPING QUIETLY IN NAD, RESP EVEN UNLABORED, SKIN WARM DRY COLOR WNL, PT AROUSES EASILY, DENIES PAIN OR DISCOMFORT, DENIES ANY IMMEDIATE NEEDS, PLAN OF CARE REVIEWED, ALL SAFETY MEASURES IN PLACE WILL CONTINUE TO MONITOR.
[2018-02-08 08:00] VITALS: BP 136/81
[2018-02-08] MEDS: metFORMIN 850 MG TAB PO SCH ×2 (08:32→16:17)
[2018-02-08] MEDS: risperiDONE 1 MG TAB PO SCH ×2 (08:32→20:36)
--- NOTE | 2018-02-08 08:35 | NUR ---
AM MEDS GIVEN, PT FELICITY WELL, PT TALKING LOUDLY IN ARAB[place], SOUNDS CONFUSED, UNAWARE OF WHERE HE IS, STATES HIS FAMILY IS THE ARABIC EMPEROR'S FAMILY. PT RE-ORIENTED, PT DENIES PAIN OR DISCOMFORT, WILL CONTINUE TO MONTIOR.
--- NOTE | 2018-02-08 11:24 | NUR ---
BEDSIDE GLUCOSE 104, NO INSULIN NEEDED PER SLIDING SCALE, ICE WATER PROVIDED IN PICHER PER PT'S REQUEST, PT ASKS IF HE CAN BE DISCHARGED TODAY IN WHEELCHAIR, PT STATES HE HAS A BUS PASS IN HIS JACKET POCKET SO HE WILL TAKE THE BUS TO "GO TO [facility]", PT EXPLAINED THAT THERE IS NO PLAN FOR DISCHARGE TODAY, AND THAT HE WILL STAY IN THE HOSPITAL FOR NOW.
--- NOTE | 2018-02-08 15:28 | NUR ---
UPDATE GIVEN ANNA MARIE, DISCUSSED NEED TO IDENTIFY PATIENT. ANNA MARIE WILL CONTACT RAYMONDAIR CROWDER FOR FINGERPRINTING.
[2018-02-08 16:00] VITALS: BP 106/56
--- NOTE | 2018-02-08 16:00 | NUR ---
PT RESTING QUIETLY IN NAD, VITAS STABLE, DENIES PAIN OR DISCOMFORT, FRESH ICE WATER GIVEN, WILL CONTINUE TO MONTOR.
--- NOTE | 2018-02-08 19:22 | NUR ---
REPORT GIVEN TO RESIDENTIAL CARPET INSTALLER NURSE, PT IN STABLE CONDITION.
--- NOTE | 2018-02-08 19:23 | NUR ---
REPORT RECEIVED FROM AM NURSE. PT IN STABLE CONDITION ASLEEP IN BED. PT AWAKE AND ALERT BUT CONFUSED. SKIN IS WARM, DRY, AND INTACT. PT HAS R BKA. PT HAS NO IV SITE. PT LUNGS CLEAR BILATERALLY. BOWEL SOUNDS ACTIVE. INTRODUCED SELF TO PT AND BOARD UPDATED. BED LOCKED IN LOW POSITION. CALL MARTE WITHIN REACH. WILL CONTINUE TO MONITOR.
--- NOTE | 2018-02-08 20:30 | NUR ---
PM MEDS GIVEN. PT TOLERATED WELL.
[2018-02-08] MEDS: TEMAZEPAM 15 MG CAP PO SCH (20:36)
--- NOTE | 2018-02-08 23:30 | NUR ---
PT ASLEEP IN BED. CHEST EXPANSION VISIBLE. WILL CONTINUE TO MONITOR.
[2018-02-09] VITALS: BP 92/54
--- NOTE | 2018-02-09 02:30 | NUR ---
NOTED A CHANGED IN POSITION DURING SLEEP. PT LAYING LEFT LATERAL WITH BLANKET COVERING HEAD. NOT IN ANY ACUTE DISTRESS. WILL CONTINUE TO MONITOR.
--- NOTE | 2018-02-09 04:45 | NUR ---
PT SLEEPING IN BED NOW LAYING SUPINE FROM LEFT LATERAL. PT NOT IN ANY ACUTE DISTRESS. WILL CONTINUE TO MONITOR.
[2018-02-09] MEDS: metFORMIN 850 MG TAB PO SCH ×2 (07:11→17:43)
--- NOTE | 2018-02-09 07:15 | NUR ---
REPORT GIVEN TO AM NURSE. PT IN STABLE CONDITION.
[2018-02-09] MEDS: BLOOD GLUCOSE MONITORING 1 DEV DEV FS SCH ×4 (07:19→20:32)
--- NOTE | 2018-02-09 07:20 | NUR ---
REPORT RECEIVED FROM CLINICAL TRAINER, PT AWAKE ALERT RESP EVEN UNLABORED ON ROOM AIR, SKIN WARM DRY COLOR WNL, PLAN OF CARE REVIEWED, PT DENIES PAIN OR DISCOMFORT, DENIES ANY IMMEDIATE NEEDS, ALL SAFETY MEASURES IN PLACE, WILL CONTINUE TO MONITOR.
[2018-02-09 08:00] VITALS: BP 128/69
[2018-02-09] MEDS: risperiDONE 1 MG TAB PO SCH ×2 (09:04→20:33)
--- NOTE | 2018-02-09 09:05 | NUR ---
AM MED GIVEN, PT FELICITY WELL, PT SITTING UP IN CHAIR EATING BREAKFAST, PT SPEAKING LOUDLY IN GOOD MOOD, SMILING, STATES HIS NAME IS "KYLIE CLARK" "EMPEROR OF [place] NAMED ME", CHARGE NURSE NOTIFIED OF PT'S NAME.
--- NOTE | 2018-02-09 13:48 | NUR ---
02/09/18 RD FOLLOW UP COMPLETED PLEASE REFER TO NUTRITION ASSESSMENT UNDER CARE ACTIVITY FOR ESTIMATED NUTRITIONAL NEEDS. 1. [facility] TOLERATED 2. RD TO FOLLOW-UP 3-5 DAYS, MODERATE RISK NOHEMY AYERS RD
[2018-02-09 16:00] VITALS: BP 142/80
--- NOTE | 2018-02-09 18:50 | NUR ---
PT FOUND ON MISSING PERSON'S WEBSITE, PT, NAME IS SEEMA DAVIS, CALLED [place] [employer] [phone] TO REPORT THAT PATIENT HAS BEEN HERE [facility] SINCE 01/31/2018, PER JOHN, [place] [employer] CAN'T SEND ANYONE TO [place], INSTRUCTED TO CALL [place] [employer] TO REPORT MISSING PERSON FOUND, HE WAS REPORTED MISSING FROM "[facility]" BY SARAHY URBAN (PETAL SHAPER HAND) [phone]. CHARGE NURSE AND DOCTOR AWARE.
--- NOTE | 2018-02-09 19:00 | NUR ---
SARAHY URBAN (SIDE PANEL PADDER) AT [facility] CALLED AT NUMBER PROVIDED BY [place] [employer] [phone], NO ANSWER, LEFT MESSAGE TO CALL BACK TO [facility] REGARDING SEEMA DAVIS.
--- NOTE | 2018-02-09 19:19 | NUR ---
NOTIFIED HANDY CROWEDR AND SPOKE TO CONCHITA. GAVE INFORMATION TO HER THAT WE CALLED [place] [employer] ABOUT THIS MISSING PERSON.
--- NOTE | 2018-02-09 19:30 | NUR ---
REPORT GIVEN TO SERVER NURSE, PT IN STABLE CONDITION.
--- NOTE | 2018-02-09 19:30 | NUR ---
RECEIVED PATIENT SITTING ON BED WITH RIGHT BKA. PATIENT WAS GRAVELY DISABLE AND 5150. PATIENT SPEAK KOREAN ONLY AND WAS A MISSING PERSON. BED IN LOW POSITION. CALL LIGHT WITHIN REACH. WILL CONTINUE TO MONITOR.
--- NOTE | 2018-02-09 20:30 | NUR ---
PATIENT REFUSED 2100 MEDICATION AND BLOOD SUGAR.
[2018-02-09] MEDS: TEMAZEPAM 15 MG CAP PO SCH (20:33)
--- NOTE | 2018-02-09 22:49 | NUR ---
SEEN PATIENT RESTING ON BED COMFORTABLY. PATIENT WAS QUIET . BED IN LOW POSITION. WILL CONTINUE TO MONITOR.
[2018-02-10] VITALS: BP 124/58
--- NOTE | 2018-02-10 00:24 | NUR ---
SEEN PATIENT AWAKE ON BED. BED IN LOW POSITION. CALL LIGHT WITHIN REACH. WILL CONTINUE TO MONITOR.
--- NOTE | 2018-02-10 02:46 | NUR ---
SEEN PATIENT ASLEEP ON BED. CALL LIGHT WITHIN REACH. BED IN LOW POSITION.
--- NOTE | 2018-02-10 04:02 | NUR ---
CHECKED PATIENT ASLEEP COMFORTABLY ON BED. BED IN LOW POSITION. CALL LIGHT WITHIN REACH.
[2018-02-10] MEDS: INSULIN LISPRO SLIDING SCALE 100 UNITS/ML VIAL SUBQ PRN (06:07)
[2018-02-10] MEDS: BLOOD GLUCOSE MONITORING 1 DEV DEV FS SCH ×3 (06:07→21:01)
--- NOTE | 2018-02-10 07:15 | NUR ---
GOT CALL FROM LAB. STATES PT REFUSED BLOOD DRAW.
--- NOTE | 2018-02-10 07:20 | NUR ---
ENDORSEMENT GIVEN TO AM SHIFT FOR CONTINUITY OF CARE. PATIENT IN STABLE CONDITION.
--- NOTE | 2018-02-10 07:21 | NUR ---
RECEIVED REPORT FROM PM NURSE AT BEDSIDE. PT SITTING ON CHAIR. AOX3. NO SIGN OF DISTRESS. INTRODUCED SELF AND UPDATED BOARD. WILL CONTINUE TO MONITOR PT. ALL SAFETY MEASURE IN PLACE. WILL CONTINUE TO MONITOR PT.
--- NOTE | 2018-02-10 07:23 | NUR ---
Report received from shift mgr. will continue to look for placement throughout shift. will update unit once new info has been received.
[2018-02-10 08:00] VITALS: BP 133/76
[2018-02-10] MEDS: metFORMIN 850 MG TAB PO SCH ×2 (08:52→17:17)
[2018-02-10] MEDS: DIVALPROEX 500 MG TABEC PO SCH ×2 (08:52→20:56)
[2018-02-10] MEDS: risperiDONE 1 MG TAB PO SCH ×2 (08:53→20:55)
--- NOTE | 2018-02-10 08:55 | NUR ---
ADMINISTERED MEDS ORDERED. TOLERATED WELL. PT SITTING ON CHAIR. LAUGHING LOUD. NO MEANINGFUL CONVERSATION. WILL CONTINUE TO MONITOR PT.
--- NOTE | 2018-02-10 09:30 | NUR ---
AMINISTERED MED ORDERED. PT TOLERATED WELL. PT SITTING ON CHAIR. NO SIGN OF DISTRESS. CALL LIGHT WITHIN REACH. WILL CONTINUE TO MONITOR PT.
--- NOTE | 2018-02-10 11:40 | NUR ---
Film Processing Shift Supervisor Notes: I call [facility] at , I spoke to [facility] Film Processing Shift Supervisor Audra discuss Patient's information needed to find Patient's family contact. I informed audra that [place] P.D. has them listed as patient's last caregiver and P.D. Provided us [facility] with their information. I also let her know that patient has been reported Missing since January 16, 2015. Per Film Processing Shift Supervisor Audra she was unable to find any information about patient in their center. SW/Audra stated that she will be contacting their medical records department and will try to find any other information about patient. Facility asphalt worker Audra stated that she will call these medical writer with any updates.
--- NOTE | 2018-02-10 12:00 | NUR ---
CHECKED ON PT. NO SIGN OF DISTRESS. PT OFFERED ICE WATER. COOPERATED WELL. NO CO OF PAIN. WILL CONTINUE TO MONITOR PT.
--- NOTE | 2018-02-10 13:25 | NUR ---
terrazzo worker helper Notes: I Call caregiver Martha Christensen number provided by [facility] Department Records. No response at the number and directly send to voice mail. I left MGS with my contact number and a request for a call back as soon as possible.
--- NOTE | 2018-02-10 13:42 | NUR ---
[facility] aware of name change for patient. Called [facility] and s/w Anthony they have no beds at this time and are still reviewing past charts. Called [facility] and s/w Rasheed, they have no beds at this time and are still reviewing past charts. Called [facility] and s/w Gregoria, they have no beds at this time. Called [facility] and s/w Mary, they have no beds at this time. Called [facility] and s/w Keo, they have no beds at this time. Called [facility] and s/w Yolanda , they have no beds at this time. Called [facility] and s/w Cirilo , no beds at this time. Called [facility] and s/w Tsering, they have no beds at this time. Called [facility] and s/w Latha , they have no beds at this time. Called [facility] and s/w Judd , they have no beds at this time. Called [facility] and s/w Kate , they have no beds at this time. Called [facility] and s/w Sheila, they have no beds at this time. Called [facility] and s/w Evelyne, they have no beds at this time.
--- NOTE | 2018-02-10 13:43 | NUR ---
Top Coater Notes: I call [facility] at I discuss patient's status and information. I Informed PD. Officer Humberto about Patient missing report found on their [facility] [employer] [facility]. I provided information needed to identify Patient however; Officer Humberto stated that there is no missing report under that Patients name. I verify Information and Absence Management Consultant Betsey and I provided report case number listed on Patient's information at [facility]. Officer Humberto then found missing report on their system and transfer the call to his records department spoke to Meg at .[facility] and she provided Patient's information. According to Meg Patient is homeless; with no money or family member; She added that Patient was placed at [phone] on December 2014. Per Meg The missing report was made by the [facility] on 01/16/15 and his information included that Patient has listed a caregiver Martha Christensen . We Thanked Meg from .[facility] and I ended the call.
--- NOTE | 2018-02-10 14:00 | NUR ---
PT SITTING ON BED. MAKING SOME NOISE. NO VERBAL MEANINGFUL CONVERSATION. NO SIGN OF DISTRESS. ALL SAFETY MEASURE IN PLACE. WILL CONTINUE WITH CURRENT PLAN OF CARE.
--- NOTE | 2018-02-10 16:00 | NUR ---
PT STABLE. BS NOTED 103. OFFERED WATER AND COFFEE. NO SIGN OF DISTRESS. WILL CONTINUE TO MONITOR PT.
[2018-02-10 17:19] VITALS: BP 128/72
--- NOTE | 2018-02-10 19:15 | NUR ---
ENDORSED PT TO PM NURSE FOR CONTINUITY OF CARE. PT SABLE AT THIS TIME.
[2018-02-10] MEDS: TEMAZEPAM 15 MG CAP PO SCH (20:56)
--- NOTE | 2018-02-10 21:00 | NUR ---
MEDICATION EDUCATION GIVEN. PATIENT VERBALIZED UNDERSTANDING. MEDICATION ADMINISTERED ORDERED. PATIENT REFUSED INSULIN.
[2018-02-11] VITALS: BP 116/67
--- NOTE | 2018-02-11 | NUR ---
CHECKED ON PATIENT. PATIENT IS ASLEEP. NO SIGNS AND SYMPTOMS OF DISTRESS NOTED. BREATHING EVEN AND UNLABORED. WILL CONTINUE TO MONITOR.
--- NOTE | 2018-02-11 03:00 | NUR ---
CHECKED ON PATIENT. PATIENT IS ASLEEP. NO SIGNS AND SYMPTOMS OF DISTRESS NOTED. BREATHING EVEN AND UNLABORED. WILL CONTINUE TO MONITOR.
[2018-02-11] MEDS: BLOOD GLUCOSE MONITORING 1 DEV DEV FS SCH ×4 (06:08→21:13)
--- NOTE | 2018-02-11 07:12 | NUR ---
PATIENT REPORT GIVEN TO MORNING NURSE AT BEDSIDE. PATIENT IS IN STABLE CONDITION
--- NOTE | 2018-02-11 07:13 | NUR ---
RECEIVED REPORT FROM PM NURSE AT BEDSIDE. PT SITING ON THE CHAIR IN ROOM. INTRODUCED SELF AND UPDATED BOARD. PT AWAKE AND ALERT . RESPOND BACK TO GREETING. CONFUSED, NO MEANINGFUL CONVERSATION. CANNOT VERBALIZE HIS NAME PROPERLY. PT STABLE AT THIS TIME. WILL CONTINUE TO MONITOR PT.
[2018-02-11 07:46] VITALS: BP 127/81
--- NOTE | 2018-02-11 08:11 | NUR ---
[facility] aware patient is still in Unit. Continueing to search for placement for patient at this time. no updates from contacted facilities.
[2018-02-11] MEDS: metFORMIN 850 MG TAB PO SCH ×2 (08:16→17:59)
[2018-02-11] MEDS: DIVALPROEX 500 MG TABEC PO SCH ×2 (08:17→21:09)
[2018-02-11] MEDS: risperiDONE 1 MG TAB PO SCH ×2 (08:17→21:09)
--- NOTE | 2018-02-11 08:18 | NUR ---
ADMINISTERED MEDS ORDERED. PT TOLERATED MEDS WELL. PT SITTING ON HIS CHAIR. EATING BREAKFAST. DENIES ANY PAIN OR DISCOMFORT. CONFUSED, NO MEANINGFUL CONVERSATION, LAUGHS IN BETWEEN WHILE TALKING. ORIENTED PT THAT HE IS IN HOSPITAL. WILL CONTINUE TO MONITOR PT.
--- NOTE | 2018-02-11 11:30 | NUR ---
CHECKED ON PT. BS CHECKED. 65 NOTED. PT OFFERED ORANGE JUICE AND SOME CRACKERS. PT LYING ON BED. WILL CONTINUE TO MONITOR PT.
--- NOTE | 2018-02-11 13:00 | NUR ---
CHECKED ON PT. PT SLEEPING. WILL CONTINUE TO MONITOR PT.
--- NOTE | 2018-02-11 13:55 | NUR ---
No Bed vacancies at [facility] contacted facilities at this time for possible placement. No updates from contacted facilities as well.
[2018-02-11 16:00] VITALS: BP 147/84
--- NOTE | 2018-02-11 16:00 | NUR ---
CHECKED ON PT. VS NOTED . BS IS 160. PT SITTING ON HIS BED. NO SIGN OF DISTRESS NOTED. PT TALKING , NO SENSE MAKING. WILL CONTINUE TO MONITOR PT.
--- NOTE | 2018-02-11 18:03 | NUR ---
PT REFUSED INSULIN .
--- NOTE | 2018-02-11 19:15 | NUR ---
ENDORSED PT TO PM NURSE FOR CONTUINITY OF CARE AT BEDSIDE. PT STABLE AT THIS TIME.
--- NOTE | 2018-02-11 19:16 | NUR ---
RECEIVED REPORT FROM DAY SHIFT NURSE. PT AWAKE, LYING COMFORTABLY IN BED. NO RESP DISTRESS NOTED. NO C/O PAIN. PT HAS RIGHT BKA. NO IV LINE. SAFETY PRECAUTION IN PLACE. CALL LIGHT WITHIN REACH.
--- NOTE | 2018-02-11 21:00 | NUR ---
BS CHECKED 186. PT REFUSED INSULIN. EXPLAINED TO PT THE USE OF INSULIN AND RISK OF REFUSING. PT STILL REFUSED. DR. HIGGINS MADE AWARE.
[2018-02-11] MEDS: TEMAZEPAM 15 MG CAP PO SCH (21:09)
--- NOTE | 2018-02-11 23:30 | NUR ---
PT SLEEPING BUT EASILY AROUSABLE. NO S/S OF DISTRESS NOTED. SAFETY PRECAUTION IN PLACE. CALL LIGHT WITHIN REACH.
[2018-02-12] VITALS: BP 136/82
--- NOTE | 2018-02-12 02:26 | NUR ---
PT SLEEPING BUT WAKES EASILY. RESP EVEN AND UNLABORED. NO S/S OF PAIN OR DISCOMFORT.
--- NOTE | 2018-02-12 05:03 | NUR ---
PT RESTING IN BED WITH EYES CLOSED. NO S/S OF DISTRESS. SAFETY PRECAUTION IN PLACE. CALL LIGHT WITHIN REACH.
--- NOTE | 2018-02-12 06:46 | NUR ---
BS CHECKED 115. NO INSULIN COVERAGE NEEDED. NO C/O PAIN OR DISCOMFORT.
--- NOTE | 2018-02-12 07:15 | NUR ---
ENDORSED PT TO DAY SHIFT NURSE. PT IN STABLE CONDITION.
[2018-02-12] MEDS: BLOOD GLUCOSE MONITORING 1 DEV DEV FS SCH ×4 (07:35→20:10)
[2018-02-12 08:00] VITALS: BP 148/78
[2018-02-12] MEDS: risperiDONE 1 MG TAB PO SCH ×2 (08:24→20:09)
[2018-02-12] MEDS: DIVALPROEX 500 MG TABEC PO SCH ×2 (08:24→20:10)
[2018-02-12] MEDS: metFORMIN 850 MG TAB PO SCH ×2 (08:24→17:12)
--- NOTE | 2018-02-12 08:27 | NUR ---
ADMINISTERED MEDS ORDERED . PT TOLERATED WELL. NO MEANINGFUL CONVERSATION. PT CONFUSED. SITTING ON HIS BED. NO SIGN OF DISTRESS. WILL CONTINUE TO MONITOR PT.
--- NOTE | 2018-02-12 09:45 | NUR ---
PT WALED AROUND THE LOBBY WITH WALKER . WALKED AROUND 500 STEPS. TOLERATED WELL. PT PUT BACK ON BED. STABLE AT THIS TIME. WILL CONTINUE TO MONITOR THE PT.
--- NOTE | 2018-02-12 12:00 | NUR ---
CHECKED ON PT. SITTING ON BEDSIDE. BS 95. NO SIGN OF DISTRESS. PT HAVING LUNCH. DENIES ANY PAIN. ALL SAFETY MEASURE IN PLACE . WILL CONTINUE TO MONITOR PT.
--- NOTE | 2018-02-12 14:00 | NUR ---
CHECKED ON PT. LYING ON BED. NOS SIGN OF DISTRESS. DENIES ANY PAIN. SAFETY MEASURE IN PLACE. WILL CONTINUE TO MONITOR PT.
[2018-02-12 16:00] VITALS: BP 130/79
--- NOTE | 2018-02-12 16:00 | NUR ---
BS 95 AT THIS TIME. VS NOTED. NO SIGN OF DISTRESS. PT SLEEPING AT THIS TIME. WILL CONTINUE TO MONITOR PT.
--- NOTE | 2018-02-12 17:15 | NUR ---
ADMINISTER MEDS. PT TOLERATED WELL. NO [id number] S/SX NOTED. WILL CONTINUE TO MONITOR PT.
--- NOTE | 2018-02-12 19:20 | NUR ---
ADMINISTERED PT TO PM NURSE . PT STABLE AT THIS TIME.
--- NOTE | 2018-02-12 19:20 | NUR ---
RECEIVED PATIENT AWAKE ON BED. BED IN LOW POSITION. CALL LIGHT WITHIN REACH. WILL CONTINUE TO MONITOR.
--- NOTE | 2018-02-12 21:35 | NUR ---
SEEN PATIENT AWAKE ON BED. BED IN LOW POSITION. CALL LIGHT WITHIN REACH. WILL CONTINUE TO MONITOR.
--- NOTE | 2018-02-12 23:45 | NUR ---
SEE PATIENT ASLEEP ON BED. CALL LIGHT WITHIN REACH. BED IN LOW POSITION.
[2018-02-13] VITALS: BP 131/82
--- NOTE | 2018-02-13 01:27 | NUR ---
CHECKED PATIENT ASLEEP COMFORTABLE WITH CALL LIGHT WITHIN REACH. NO S/S OF DISTRESS NOTED. WILL CONTINUE TO MONITOR.
--- NOTE | 2018-02-13 02:14 | NUR ---
SEEN PATIENT ASLEEP ON BED . CALL LIGHT WITHIN REACH. BED IN LOW POSITION.
--- NOTE | 2018-02-13 02:56 | NUR ---
[facility] IS SEARCHING FOR BED PLACEMENT. THERE ARE CURRENTLY NO BEDS AVAILABLE AT THIS TIME. WE WILL CONTINUE TO CALL FACILITIES IN THE MORNING.
[2018-02-13] MEDS: BLOOD GLUCOSE MONITORING 1 DEV DEV FS SCH ×4 (05:58→20:17)
--- NOTE | 2018-02-13 07:14 | NUR ---
ENDORSEMENT GIVEN TO AM SHIFT NURSE FOR CONTINUITY OF CARE. PATIENT IN STABLE CONDITION.
--- NOTE | 2018-02-13 07:55 | NUR ---
PATIENT IS AWAKE, ALERT, SITTING ON THE CHAIR. RESPIRATION EVEN, UNLABOR ON ROOM AIR. SKIN DRY AND WARM. LUNGS SOUND CLEAR THROUGHOUT, BOWEL SOUND ACTIVE, REGULAR CARDIAC RHYTHM. DENIED PAIN. NO DISTRESS NOTED. PLAN OF CARE WAS DISCUSSED WITH PATIENT. BED AT LOW POSITION, SIDE RAILS UP. CALL LIGHT WITHIN REACH
[2018-02-13 08:00] VITALS: BP 175/88
[2018-02-13] MEDS: risperiDONE 1 MG TAB PO SCH ×2 (08:41→20:12)
[2018-02-13] MEDS: metFORMIN 850 MG TAB PO SCH ×2 (08:42→16:54)
[2018-02-13] MEDS: DIVALPROEX 500 MG TABEC PO SCH ×2 (08:42→20:12)
[2018-02-13 09:00] VITALS: BP 138/71
--- NOTE | 2018-02-13 10:56 | NUR ---
PATIENT AWAKE, ALERT. RESPIRATION EVEN, UNLABOR ON ROOM AIR. NO DISTRESS NOTED AT THIS TIME
--- NOTE | 2018-02-13 13:00 | NUR ---
PATIENT AWAKE, ALERT. RESPIRATION EVEN, UNLABOR ON ROOM AIR. NO DISTRESS NOTED AT THIS TIME
[2018-02-13 16:00] VITALS: BP 155/84
--- NOTE | 2018-02-13 16:15 | NUR ---
PATIENT AWAKE, ALERT, SITTING ON THE CHAIR COMFORTABLY. RESPIRATION EVEN, UNLABOR ON ROOM AIR. DENIED PAIN. VS IS STABLE. NO DISTRESS NOTED AT THIS TIME
--- NOTE | 2018-02-13 17:57 | NUR ---
Him Assistant Notes: I called [facility] at , I spoke to [facility] Him Assistant Audra to followed up with Patient's information provided by Marga Gilmore of patient been in their facility in 2015. I also informed Audra [place] Officer Humberto stated that their facility made the missing report on patient back on 2014. Per Audra they have not find any records however; stated that she will call me back with Medical Records solar manufacturer's representative information to attempt to find more information on patient. I provided my contact information.
--- NOTE | 2018-02-13 18:23 | NUR ---
PATIENT AWAKE, ALERT. RESPIRATION EVEN, UNLABOR ON ROOM AIR. NO DISTRESS NOTED AT THIS TIME
--- NOTE | 2018-02-13 18:43 | NUR ---
[facility] IS AWARE OF PATIENT. WE WILL BE REACHING OUT TO ADDITIONAL FACILITIES AND UPDATING SHORTLY.
--- NOTE | 2018-02-13 19:19 | NUR ---
ENDORSEMENT GIVEN TO THE PILLOWCASE CLEANER NURSE. PATIENT IS STABLE AT THIS TIME
--- NOTE | 2018-02-13 19:20 | NUR ---
REPORT RECEIVED FROM AM NURSE. PT IN STABLE CONDITION. AAOX2. INTRODUCED SELF TO PT AND UPDATED BOARD. HEART SOUNDS NORMAL. LUNGS SOUNDS CLEAR. BOWEL SOUNDS ACTIVE X4 QUADRANTS. PT HAS NO IV SITE. SKIN IS WARM, DRY, DRY, AND INTACT. PT HAS RIGHT BKA. BED LOCKED IN LOW POSITION. CALL MARTE WITHIN REACH. WILL CONTINUE TO MONITOR.
--- NOTE | 2018-02-13 20:18 | NUR ---
PM MEDS GIVEN. PT TOLERATED WELL. WENT BACK TO SLEEP AFTER ADMINISTRATION.
--- NOTE | 2018-02-13 23:00 | NUR ---
PT ASLEEP IN BED. CHEST EXPANSION VISIBLE. PT NOT IN ANY ACUTE DISTRESS. WILL CONTINUE TO MONITOR.
[2018-02-14] VITALS: BP 141/71
--- NOTE | 2018-02-14 02:01 | NUR ---
PT ASLEEP. POSITION CHANGED DURING THE NIGHT. CHEST EXPANSION VISUALIZED. PT NOT IN ANY ACUTE DISTRESS. WILL CONTINUE TO MONITOR.
--- NOTE | 2018-02-14 05:15 | NUR ---
PT AWAKE AND ALERT WATCHING TV. ASKED FOR ICE WATER AND COFFEE. WILL CONTINUE TO MONITOR.
--- NOTE | 2018-02-14 06:00 | NUR ---
DOWNTIME FROM 4-6AM.
--- NOTE | 2018-02-14 06:30 | NUR ---
PT WATCHING TV LAUGHING AND SINGING. PT NOT IN ANY ACUTE DISTRESS.
[2018-02-14] MEDS: BLOOD GLUCOSE MONITORING 1 DEV DEV FS SCH ×4 (06:40→21:43)
--- NOTE | 2018-02-14 07:20 | NUR ---
REPORT GIVEN TO AM NURSE. PT IN STABLE CONDITION.
--- NOTE | 2018-02-14 07:30 | NUR ---
RECEIVED PT REPORT FROM LANGUAGE THERAPIST NURSE. PT IN STABLE CONDITION. AAOX2. INTRODUCED SELF TO PT AND UPDATED BOARD. PT HAS NO IV SITE. SKIN IS WARM, DRY AND INTACT. PT HAS RIGHT BKA. BED LOCKED IN LOWEST POSITION. CALL LIGHT WITHIN REACH. WILL CONTINUE TO MONITOR.
[2018-02-14 08:00] VITALS: BP 122/98
--- NOTE | 2018-02-14 09:30 | NUR ---
PT AWAKE AND ALERT WATCHING TV. ASKED FOR JUICE, TOLD PT THAT HE IS DIABETIC, CAN'T GIVE ANY EXTRA JUICE, PT AGREES TO WAIT TILL LUNCH.
[2018-02-14] MEDS: metFORMIN 850 MG TAB PO SCH ×2 (09:41→18:00)
[2018-02-14] MEDS: DIVALPROEX 500 MG TABEC PO SCH ×2 (09:41→20:24)
[2018-02-14] MEDS: risperiDONE 1 MG TAB PO SCH ×2 (09:41→20:25)
--- NOTE | 2018-02-14 14:35 | NUR ---
PT LYSING ON BED LATERALLY FACING WINDOW. NO S/S OF ACUTE DISTRESS.
--- NOTE | 2018-02-14 15:25 | NUR ---
02/14/18 RD FOLLOW UP COMPLETED PLEASE REFER TO NUTRITION ASSESSMENT UNDER CARE ACTIVITY FOR ESTIMATED NUTRITIONAL NEEDS. 1. [facility] DI[facility] TOLERATED 2. RD TO FOLLOW-UP 3-5 DAYS, MODERATE RISK ANNIA AYERS RD Addendum: 02/14/18 at [address] TO FOLLOW UP 5-7 DAYS, LOW RISK ANNIA AYERS RD
[2018-02-14 16:00] VITALS: BP 113/65
--- NOTE | 2018-02-14 19:30 | NUR ---
REPORT GIVEN TO PM NURSE. PT IN STABLE CONDITION.
[2018-02-14 20:20] VITALS: BP 103/61
--- NOTE | 2018-02-14 20:20 | NUR ---
SEEN PT AWAKE, ALERT AND BUT NOT ORIENTED TO HIS NAME. PT SAID DIFFERENT NAME, YEAR, DATE. PT ABLE TO FOLLOW SIMPLE COMMANDS. INITIAL ASSESSMENT DONE. VITAL SIGNS CHECKED. PT DENIES ANY PAIN. PT UNABLE TO RECALL WHEN WAS HIS LAST BM. SAFETY REINFORCED. CALL LIGHT W/IN REACH. WILL CONTINUE TO MONITOR.
--- NOTE | 2018-02-14 20:24 | NUR ---
BLOOD SUGAR CHECKED:113. NO COVERAGE NEEDED. SNACKS GIVEN. MEDICATIONS GIVEN W/ TEACHINGS.
--- NOTE | 2018-02-14 21:56 | NUR ---
No vacancy available for placement at this time.
--- NOTE | 2018-02-14 22:30 | NUR ---
SEEN PT SLEEPING SOUNDLY. SAFETY REINFORCED.
--- NOTE | 2018-02-15 04:44 | NUR ---
There are no vacancy for placement at this time , will endorsed to oncoming shift to find placement.
[2018-02-15 04:50] VITALS: BP 114/56
--- NOTE | 2018-02-15 04:55 | NUR ---
SEEN PT ASLEEP. AWAKEN PT. VITAL SIGNS CHECKED. PT DENIES ANY DISCOMFORT. SAFETY REINFORCED.
--- NOTE | 2018-02-15 05:30 | NUR ---
ENDORSED TO [facility] FOR CONTINUITY OF CARE.
--- NOTE | 2018-02-15 05:31 | NUR ---
PATIENT REPORT RECEIVED FROM BOOGIE RON FOR CONTINUITY OF CARE. PATIENT IS IN STABLE CONDITION
[2018-02-15] MEDS: BLOOD GLUCOSE MONITORING 1 DEV DEV FS SCH ×2 (05:56→12:30)
--- NOTE | 2018-02-15 07:10 | NUR ---
RECEIVED REPORT FROM NIGHTSHIFT NURSE AT BEDSIDE. PATIENT IS AWAKE AT THIS TIME IN HIGH FOWLERS POSITION. PATIENT IS NOT ORIENTED TO HIS NAME YET IS AWAKE AND ALERT. PATIENT NOT ORIENTED TO HIS BIRTHDAY. PATIENT ABLE TO FOLLOW SIMPLE COMMANDS. PATIENT HAS RIGHT BKA. LOWERED BED TO LOWEST SETTING. UPDATED BOARD IN PATIENT'S ROOM. APPROPRIATE SIGNS OUTSIDE OF PATIENT'S ROOM. CALL LIGHT WITHIN REACH OF PATIENT. INSTRUCTED PATIENT TO CALL IF HE NEEDS HELP. WILL CONTINUE TO MONITOR PATIENT.
--- NOTE | 2018-02-15 07:10 | NUR ---
PATIENT REPORT GIVEN TO MORNING NURSE AT BEDSIDE FOR CONTINUITY OF CARE. PATIENT IS IN STABLE CONDITION
[2018-02-15 08:00] VITALS: BP 138/74
[2018-02-15] MEDS: DIVALPROEX 500 MG TABEC PO SCH ×2 (08:33→20:03)
[2018-02-15] MEDS: metFORMIN 850 MG TAB PO SCH ×2 (08:33→17:00)
[2018-02-15] MEDS: risperiDONE 1 MG TAB PO SCH ×2 (08:34→20:03)
--- NOTE | 2018-02-15 08:34 | NUR ---
PATIENT TOOK AM MEDICATIONS. PATIENT TOLERATED WELL. WILL CONTINUE TO MONITOR PATIENT.
--- NOTE | 2018-02-15 09:49 | NUR ---
REFILLED PATIENT'S WATER. PATIENT IS IN RIGHT LATERAL SIDE LYING POSITION. NO DISTRESS NOTED. WILL CONTINUE TO MONITOR PATIENT.
--- NOTE | 2018-02-15 13:00 | NUR ---
PATIENT IS RESTING AT THIS TIME IN HIGH FOWLERS POSITION. WILL CONTINUE TO MONITOR PATIENT.
--- NOTE | 2018-02-15 13:17 | NUR ---
Supervisor Ornamental Ironworking Notes: I Call [facility] for Supervisor Ornamental Ironworking Audra at I Staff Ileana from medical records answer the call stating that audra was not available at the moment she was on a meeting; I discuss with Ileana about needed Patient's medical records and information. I also informed and explained to Ileana previous conversation with Audra on Tuesday02/10/18; and her agreement and stating that she will discuss patient info with her supervisor sunglasses and medical records and that she will call be back to follow up with these resume writer Tuesday02/13/18. I informed Ileana that no one from her facility has call me back and give me any updates. Per Ileana in Medical records requested for me to send them a fax requesting Patient's information and that she will faxed information as soon as possible. I agreed and asked for fax number to send request.
--- NOTE | 2018-02-15 13:33 | NUR ---
Handstitching Machine Collar Feller notes: I faxed request for Patient's information to Ileana from Medical Records at
--- NOTE | 2018-02-15 13:43 | NUR ---
Broadcast Designer Notes: I received a call from Audra Broadcast Designer at [facility] stating that she has already talk to her Services Advisor at her facility and also discuss and search with Medical Records Department Patient records. According to Audra there is no data or record of patient ever been in their facility, therefore; there is no information that their facility can provide us at [facility] about patient. I explained to Audra that the information we here at [facility]/Case Management was received was given and provided by [facility] listing their facility as the last caregivers for the patient and included that their facility staff member made the Missing report to [facility] On 2014 and is on record in their P.D department missing report case #[id number]. Per Audra there is nothing they can do at this point and they still unable too provide any information about these patient's that has no record with their facility.
--- NOTE | 2018-02-15 14:08 | NUR ---
C T Tech Notes: I call [facility] Records Department I spoke to Kathi to discuss information provided on 02/10/18 by officer Humberto and request a copy of patient's Missing Report due to facility denying any records of patient ever been in their facility. Per Kathi from P.D records she can provide a copy of records with a fee of $ 2.00 with a request and reason of why a copy of record is needed by [facility] fax to their department at [phone]. I thanked Kathi and agreed to fax required fee and request.
--- NOTE | 2018-02-15 14:22 | NUR ---
PATIENT LAYING IN BED AT THIS TIME. NO DISTRESS NOTED WITH PATIENT. NO COMPLAINTS OF PAIN. WILL CONTINUE TO MONITOR PATIENT.
[2018-02-15 16:00] VITALS: BP 122/69
--- NOTE | 2018-02-15 17:50 | NUR ---
PATIENT SLEEPING AT THIS TIME. NO DISTRESS NOTED. WILL CONTINUE TO MONITOR PATIENT.
--- NOTE | 2018-02-15 19:17 | NUR ---
GAVE REPORT TO NIGHTSHIFT NURSE. PATIENT IN STABLE CONDITION.
--- NOTE | 2018-02-15 19:17 | NUR ---
RECEIVED PT COMING OUT OF THE BR, ABLE TO TRANSFER BACK TO BED WITH STANDBY ASSISTANCE, NOT ORIENTED TO HIS NAME AND DATE, ABLE TO FOLLOW SIMPLE COMMANDS, SAFETY PROTOCOL IN PLACE, ENCOURAGE TO USE CALL LIGHT FOR ASSISTANCE, CALL LIGHT WITHIN REACH.
--- NOTE | 2018-02-15 20:10 | NUR ---
PT SEEN LYING ON BED, CALM AND COOPERATIVE, DUE PO MEDICATIONS TAKEN, PROVIDED WITH BEDTIME SNACKS, ALL NEEDS ATTENDED.
--- NOTE | 2018-02-15 23:30 | NUR ---
PT SLEEPING, EASILY AROUSABLE, VITAL SIGNS STABLE, DENIES ANY PAIN, CALM AND COOPERATIVE AT THIS TIME, CONTINUE TO MONITOR CLOSELY, PT WENT BACK TO SLEEP, CALL LIGHT WITHIN REACH.
[2018-02-16] VITALS: BP 136/79
--- NOTE | 2018-02-16 04:10 | NUR ---
PATIENT SLEEPING, NO SIGNS OF DISTRESS, CONTINUE TO MONITOR CLOSELY.
--- NOTE | 2018-02-16 06:23 | NUR ---
PT AWAKE SITTING ON BED, NO SIGNS OF DISTRESS, BLOOD SUGAR CHECKED WITH 97 RESULT, JELLO AND JUICE PROVIDED, DENIES PAIN, MONITORED CLOSELY.
--- NOTE | 2018-02-16 07:15 | NUR ---
PT AWAKE ON BED, NO SIGNS OF DISTRESS, REPORT GIVEN TO BOOGIE MARQUEZ FOR CONTINUITY OF CARE.
--- NOTE | 2018-02-16 07:20 | NUR ---
RECEIVED PT FROM HARDWOOD FLOOR REFINISHER NURSE,DIDI, PT IS AWAKE AND SEATED ON THE BED. SIDE RAILS ARE UP AND CALL LIGHT WITHIN REACH. PT HAS A RT BKA. NO SIGN OF DISTRESS NOTED. PT HAS NO IV ACCESS, PT REFUSED. WILL CONTINUE TO MONITOR.
--- NOTE | 2018-02-16 07:50 | NUR ---
PT IS AWAKE AND VITAL SIGNS TAKEN AND IS STABLE. NO SIGN OF DISTRESS NOTED AND WILL CONTINUE TO MONITOR.
[2018-02-16 08:00] VITALS: BP 136/80
[2018-02-16] MEDS ORDERED: BLOOD GLUCOSE MONITORING 1 DEV DEV FS SCH (09:00)
[2018-02-16] MEDS: metFORMIN 850 MG TAB PO SCH ×2 (09:33→17:20)
[2018-02-16] MEDS: DIVALPROEX 500 MG TABEC PO SCH ×2 (09:33→20:00)
[2018-02-16] MEDS: risperiDONE 1 MG TAB PO SCH ×2 (09:34→20:01)
--- NOTE | 2018-02-16 09:35 | NUR ---
PT IS AWAKE AND SEATED ON THE BED, MEDICATIONS GIVEN AND PT TOLERATED IT. NO SIGN OF DISTRESS NOTED. BLOOD GLUCOSE CHECK DONE AND RESULT IS 252. PT REFUSED TO HAVE AN INSULIN INJECTION. WILL CONTINUE TO MONITOR.
[2018-02-16] MEDS: INSULIN LISPRO SLIDING SCALE 100 UNITS/ML VIAL SUBQ PRN (09:42)
--- NOTE | 2018-02-16 11:00 | NUR ---
Composition Weatherboard Installer Notes: I received a faxed from [place] [employer] providing report information about patient and previous Facility information he was placed at [facility]. I faxed Information to facility operations manager Chary with request to provide patient information.
--- NOTE | 2018-02-16 12:00 | NUR ---
PT IS AWAKE AND EATING HIS LUNCH, NO SIGN OF DISTRESS NOTED AND WILL MONITOR.
--- NOTE | 2018-02-16 14:00 | NUR ---
PT IS AWAKE AND SEATED ON THE BED, TALKING LOUDLY TO HIMSELF. NO SIGN OF DISTRESS NOTED AND WILL MONITOR
[2018-02-16 16:00] VITALS: BP 161/73
--- NOTE | 2018-02-16 17:00 | NUR ---
PT IS AWAKE AND LYING ON THE BED, WATCHING TV, VITAL SIGNS TAKEN AND BP IS 166/73. NO OTHER UNTOWARD SIGN AND SYMPTOM NOTED. WILL MONITOR.
--- NOTE | 2018-02-16 17:10 | NUR ---
PT'S BP RESULT OF 166/[address] KIRK AND HE SAID THAT HE WILL RELAY IT TO DR. BERRY. WILL MAKE A FOLLOW UP ON THE DR. BERRY.
--- NOTE | 2018-02-16 17:20 | NUR ---
PT IS AWAKE AND MEDICATION GIVEN AND PT TOLERATED IT. NO SIGN OF DISTRESS NOTED AND WILL CONTINUE TO MONITOR.
--- NOTE | 2018-02-16 17:45 | NUR ---
REPORTED TO DR. BERRY THAT THE PT'S BP WAS 161/73 AND THE PT IS JUST WATCHING TV. PT WAS ASKED IF HE IS FEELING LIGHT HEADED AND DIZZY OF IS IN PAIN BUT THE PT VERBALIZED FERNANDO HE IS NOT IN ANY PAIN AND HE IS OK. DR. BERRY SAID THAT HE WILL MAKE AN ORDER.
[2018-02-16] MEDS ORDERED: LISINOPRIL 5 MG TAB PO SCH (18:00)
--- NOTE | 2018-02-16 18:43 | NUR ---
PT IS AWAKE AND LYING ON THE BED, BP WAS TAKEN AND IS 153/65. MEDICATION GIVEN AND PT TOLERATED IT. NO SIGN OF DISTRESS NOTED. WILL MONITOR.
--- NOTE | 2018-02-16 19:12 | NUR ---
No update from contacted facilities at this time.
--- NOTE | 2018-02-16 19:30 | NUR ---
ENDORSED PT TO PRESCHOOL TEACHER AIDE NURSE, DIDI, FOR CONTINUITY OF CARE. PT IS STABLE AT THIS TIME.
--- NOTE | 2018-02-16 19:32 | NUR ---
RECEIVED PT AWAKE LYING ON BED, CALM AND COOPERATIVE, DENIES ANY PAIN, VITAL SIGNS STABLE: BP-115/62, HR-79, 99% SAT ON ROOM AIR, NO IV SITE, PT REFUSED TO START IV LINE, 'S AWARE, SAFETY MEASURES IN PLACE, CALL LIGHT WITHIN REACH.
--- NOTE | 2018-02-16 20:00 | NUR ---
BLOOD SUGAR CHECKED WITH 117 RESULT, SNACK PROVIDED, WITH EXCELLENT APPETITE, ALL NEEDS ATTENDED.
[2018-02-16] MEDS: BLOOD GLUCOSE MONITORING 1 DEV DEV FS SCH (21:22)
[2018-02-17] VITALS: BP 114/61
--- NOTE | 2018-02-17 | NUR ---
PT SLEEPING, EASILY AROUSABLE, VITAL SIGNS STABLE, NO SIGNS OF PAIN, CONTINUE TO MONITOR CLOSELY.
--- NOTE | 2018-02-17 05:37 | NUR ---
PT SLEEPING, EASILY AROUSABLE, CALM AND COOPERATIVE AT THIS TIME, BLOOD SUGAR CHECKED WITH 117 RESULT, DENIES PAIN, PT WENT BACK TO SLEEP, MONITORED CLOSELY.
[2018-02-17] MEDS: BLOOD GLUCOSE MONITORING 1 DEV DEV FS SCH ×4 (06:41→20:41)
--- NOTE | 2018-02-17 07:12 | NUR ---
PT AWAKE, NO SIGNS OF DISTRESS, REPORT GIVEN TO RN ARMANDO FOR CONTINUITY OF CARE.
--- NOTE | 2018-02-17 07:13 | NUR ---
BEDSIDE REPORT GIVEN TO ME BY RESORT DESK CLERK NURSE. PATIENT IS AWAKE. HE IS CONFUSED, UNABLE TO STATE HIS NAME, , AGE, DATE OR TIME. HE IS AT BASELINE. NO SIGNS OF DISTRESS ON ROOM AIR. PATIENT REFUSES IV. SKIN IS INTACT. HX OF R BKA. BED IN LOW POSITION. CALL LIGHT WITHIN REACH. WILL CONTINUE TO MONITOR THE PATIENT.
[2018-02-17 07:58] VITALS: BP 143/75
[2018-02-17] MEDS: DIVALPROEX 500 MG TABEC PO SCH ×2 (08:11→20:42)
[2018-02-17] MEDS: metFORMIN 850 MG TAB PO SCH ×2 (08:11→17:42)
[2018-02-17] MEDS: LISINOPRIL 5 MG TAB PO SCH (08:11)
[2018-02-17] MEDS: risperiDONE 1 MG TAB PO SCH ×2 (08:11→20:43)
--- NOTE | 2018-02-17 08:14 | NUR ---
ADMINISTERED MEDS. PATIENT TOLERATED WELL. BED IN LOW POSITION. CALL LIGHT WITHIN REACH. PATIENT EATING BREAKFAST.
--- NOTE | 2018-02-17 09:30 | NUR ---
Studio Operations Manager Notes: I call [facility] at to follow up on request for patients medical information from their facility. I was transfer to Facility Director Rosemary and Nila from facility medical records department. Facility director Chary agreed and confirmed that patient was in their facility and that she did received my fax and request on 02/16/18. however; they are not able to provide any patient information due to Patient having a public guardian Loren Shaw Per Nila I had to contact Public guardian to have her approve and release patient Information. I discuss with nila that I will call public Guardian however; if patient no longer have one public guardian; how can [facility] get his information. Per Nila in Medical records If Patient no longer has a public guardian the only one that can release his information is patient. I thanked them both for their information I ended the call.
--- NOTE | 2018-02-17 09:45 | NUR ---
Tech Ed/Woodshop Teacher Notes: I call to [facility] Public Guardian Office to request to speak to Patient's Public Guardian Loren Shaw. Per Corina Strategy Analyst Public Guardian is out for the week and will not be back till after 01 of March. I asked who can I speak in regards to Patient She asked me Patient's name and stated that patient no longer has public guardian Since 03/06/15 and they can not provide any information about Patient. I thanked her for the information and I ended the call.
--- NOTE | 2018-02-17 10:57 | NUR ---
PATIENT SITTING ON BED. NO DISTRESS AT THIS TIME. HE WANTED ME TO CUT HIS PANTS FOR HIM BECAUSE OF HIM BKA AND HE SAID SHORTS ARE MORE COMFORTABLE. WILL CONTINUE TO MONITOR THE PATIENT. CALL LIGHT WITHIN REACH
--- NOTE | 2018-02-17 11:50 | NUR ---
PATIENT AMBULATED AROUND THE FLOOR USING WALKER. GAIT IS STEADY. BACK IN BED. PATIENT TOLERATED WELL. WILL CONTINUE TO MONITOR THE PATIENT.
--- NOTE | 2018-02-17 14:00 | NUR ---
PATIENT IS SLEEPING. NO SIGNS OF DISTRESS ON ROOM AIR. BED IN LOW POSITION. CALL LIGHT WITHIN REACH
[2018-02-17 16:00] VITALS: BP 163/88
--- NOTE | 2018-02-17 16:00 | NUR ---
Odd Piece Checker Notes: I Meet with patient in attempt to explain him the need to get his medical information and to have him signed a released of information form. Patient declined.
--- NOTE | 2018-02-17 16:00 | NUR ---
VITALS AND BS ARE WITHIN NORMAL LIMITS.
--- NOTE | 2018-02-17 17:00 | NUR ---
PATIENT AMBULATING INDEPENDENTLY AROUND HALLS USING WALKER. GAIT IS STEADY. WILL CONTINUE TO MONITOR THE PATIENT.
--- NOTE | 2018-02-17 19:00 | NUR ---
RECEIVED PATIENT SITTING QUIETLY ON TOP OF THE BED. CALL LIGHTS WITHIN REACH.BED IN LOW POSITION. NO SIGN OF AGGRESSION NOTED AT THIS TIME. WILL CONTINUE TO MONITOR.
--- NOTE | 2018-02-17 19:00 | NUR ---
GAVE BEDSIDE REPORT TO LAV CREWMAN NURSE. PATIENT IS IN STABLE CONDITION
--- NOTE | 2018-02-17 22:00 | NUR ---
PATIENT REFUSED TO TAKE HIS MEDICATION. SEEN PATIENT ASLEEP ON BED. WILL CONTINUE TO MONITOR.
--- NOTE | 2018-02-18 | NUR ---
SEEN PATIENT ASLEEP ON BED. CALL LIGHT WITHIN REACH.
--- NOTE | 2018-02-18 02:08 | NUR ---
CHECKED PATIENT RESTING COMFORTABLY ON BED. CALL LIGHT WITHIN REACH. BED IN LOW POSITION.
--- NOTE | 2018-02-18 05:10 | NUR ---
SEEN PATIENT AWAKE SITTING ON TOP OF THE BED. PATIENT WAS PLEASANT AND OBEYS COMMAND. FALL PRECAUTION IMPLEMENTED. CALL LIGHT WITHIN REACH.. BED LINEN CHANGED FOR COMFORT.
[2018-02-18] MEDS: BLOOD GLUCOSE MONITORING 1 DEV DEV FS SCH ×4 (06:05→21:18)
--- NOTE | 2018-02-18 07:10 | NUR ---
GAVE REPORT AT PATIENT BEDSIDE TO AM SHIFT NURSE FOR CONTINUITY OF CARE. PATIENT IN STABLE CONDITION.
--- NOTE | 2018-02-18 07:11 | NUR ---
RECEIVED PATIENT REPORT FROM TAPE SEWER NURSE AT BEDSIDE FOR CONTINUITY OF CARE. PATIENT IN STABLE CONDITION, ALERT AND AWAKE, SPEAKS IN RUSSIAN AND MACEDONIAN. NO IV ACCESS, RESPIRATIONS EVEN AND UNLABORED, PATIENT DENIES PAIN. SAFETY PRECAUTION IN PLACE, CALL LIGHT WITHIN REACH, WILL CONTINUE TO MONITOR PATIENT.
[2018-02-18 08:00] VITALS: BP 158/83
[2018-02-18] MEDS: risperiDONE 1 MG TAB PO SCH ×2 (08:45→20:12)
[2018-02-18] MEDS: metFORMIN 850 MG TAB PO SCH ×2 (08:45→17:00)
[2018-02-18] MEDS: DIVALPROEX 500 MG TABEC PO SCH ×2 (08:45→20:12)
--- NOTE | 2018-02-18 08:45 | NUR ---
ORDERED MEDICATIONS GIVEN. PATIENT TOLERATED THEM WELL. NO SIGNS OF DISTRESS OR SOB NOTED ON ROOM AIR. PATIENT DENIES PAIN. SAFETY PRECAUTION IN PLACE, CALL LIGHT WITHIN REACH, WILL CONTINUE TO MONITOR PATIENT.
[2018-02-18] MEDS: LISINOPRIL 5 MG TAB PO SCH (08:46)
--- NOTE | 2018-02-18 11:30 | NUR ---
BLOOD SUGAR 93, NO COVERAGE NEEDED. PATIENT AMBULATING AROUND FLOOR WITH WALKER. WILL CONTINUE TO MONITOR PATIENT.
--- NOTE | 2018-02-18 13:50 | NUR ---
PATIENT RESTING COMFORTABLY IN BED. NO SIGNS OF DISTRESS OR SOB NOTED ON ROOM AIR. PATIENT DENIES PAIN. SAFETY PRECAUTION IN PLACE, CALL LIGHT WITHIN REACH, WILL CONTINUE TO MONITOR PATIENT.
--- NOTE | 2018-02-18 15:25 | NUR ---
PATIENT AMBULATING IN HALLWAY WITH WALKER. NO SIGNS OF DISTRESS OR SOB NOTED ON ROOM AIR. WILL CONTINUE TO MONITOR PATIENT.
--- NOTE | 2018-02-18 17:00 | NUR ---
PATIENT REFUSED ORDERED MEDICATIONS AND BLOOD SUGAR CHECK AND VITAL SIGNS. PATIENT RESTING IN BED, NO SIGNS OF DISTRESS OR SOB NOTED ON ROOM AIR. PATIENT DENIES PAIN. SAFETY PRECAUTION IN PLACE, CALL LIGHT WITHIN REACH, WILL CONTINUE TO MONITOR PATIENT.
--- NOTE | 2018-02-18 19:15 | NUR ---
REPORT GIVEN TO COTTON GRADER NURSE AT BEDSIDE FOR CONTINUITY OF CARE. PATIENT IN STABLE CONDITION.
--- NOTE | 2018-02-18 19:20 | NUR ---
RECEIVED REPORT FROM DAYSWVFT NURSE AT BEDSIDE FOR CONTINUITY OF CARE. PT AAOX4. NO IV ACCESS NOTED. PT ON ROOM AIR. PT HAS RIGHT BKA AMBULATE WITH WALKER. BED LOWERED CALL LIGHT WITHIN REACH. WILL CONTINUE TO MONITOR.
--- NOTE | 2018-02-18 20:00 | NUR ---
BLOOD GLUCOSE 193. PT REFUSED INSULIN COVERAGE. WILL CONTINUE TO MONITOR.
--- NOTE | 2018-02-18 20:30 | NUR ---
PT TOOK MEDS WELL. REQUESTED COFFEE. WILL CONTINUE TO MONITOR.
--- NOTE | 2018-02-18 23:23 | NUR ---
PT SLEEPING. NO SOB, NO S/S OF DISTRESS. WILL CONTINUE TO MONITOR.
[2018-02-19] VITALS: BP 138/82
--- NOTE | 2018-02-19 02:00 | NUR ---
PT SLEEPING. TURNED OFF LIGHTS, NO SOB NO S/S OF DISTRESS WILL CONTINUE TO MONITOR.
[2018-02-19] MEDS: BLOOD GLUCOSE MONITORING 1 DEV DEV FS SCH ×4 (06:26→21:00)
--- NOTE | 2018-02-19 07:28 | NUR ---
GAVE REPORT TO DAYSHIFT NURSE AT BEDSIDE FOR CONTINUITY OF CARE.
--- NOTE | 2018-02-19 07:29 | NUR ---
REPORT RECEIVED FROM HEALTH POLICY NURSE NURSE, PT AWAKE ALERT SITTING UP IN BED QUIETLY IN NAD, RESP EVEN UNLABORED, SKIN WARM DRY COLOR WNL, PLAN OF CARE REVIEWED, ALL SAFETY MEASURES IN PACE
[2018-02-19 08:00] VITALS: BP 149/76
[2018-02-19] MEDS: metFORMIN 850 MG TAB PO SCH ×2 (08:41→17:00)
[2018-02-19] MEDS: LISINOPRIL 5 MG TAB PO SCH (09:00)
[2018-02-19] MEDS: risperiDONE 1 MG TAB PO SCH ×2 (09:00→21:00)
[2018-02-19] MEDS: DIVALPROEX 500 MG TABEC PO SCH ×2 (09:00→21:00)
--- NOTE | 2018-02-19 10:10 | NUR ---
PT TOOK ALL AM MEDS FELICITY WELL, PT SITTING UP IN CHAIR WATHCHING TV, VERY HAPPY, DENIES ANY IMMEDIATE NEEDS, WILL CONTINUE TO MONTIOR.
--- NOTE | 2018-02-19 11:11 | NUR ---
NO BEDS CURRENTLY AVAILABLE AT THIS TIME
--- NOTE | 2018-02-19 16:00 | NUR ---
PT REFUSES TO HAVE VITALS TAKEN, PT AWAKE ALERT, SPEAKING CLEARLY, RESPIRATION EASY UNLABORED, SKIN WARM DRY COLOR WNL, WILL ATTEMPT VITALS LATER.
--- NOTE | 2018-02-19 18:08 | NUR ---
PT SITTING UP EATING DINNER, PT AWAKE ALERT, HAPPY TO EAT DINNER. APPEARS IN NAD.
--- NOTE | 2018-02-19 19:17 | NUR ---
REPORT GIVEN TO CAMP NURSE NURSE, PT IN STABLE CONDITION.
--- NOTE | 2018-02-19 19:20 | NUR ---
RECEIVED REPORT FROM DAYSHIFT NURSE AT BEDSIDE FOR CONTINUITY OF CARE. PT AAOX3. PT HAS NO IV ACCESS. NO SOB NO S/S OF DISTRESS WILL CONTINUE TO MONITOR. BED LOWERED CALL LIGHT WITHIN REACH WILL CONTINUE TO MONITOR.
--- NOTE | 2018-02-19 21:30 | NUR ---
PT TOOK MEDS WELL WILL CONTINUE TO MONITOR.
--- NOTE | 2018-02-19 23:35 | NUR ---
Not able to find any placement at this time will continue to make calls for placement .
[2018-02-20] VITALS: BP 134/61
--- NOTE | 2018-02-20 04:43 | NUR ---
PT SLEEPING . NO SOB NO S/S OF DISTRESS. WILL CONTINUE TO MONITOR.
[2018-02-20] MEDS: BLOOD GLUCOSE MONITORING 1 DEV DEV FS SCH ×4 (06:09→20:39)
--- NOTE | 2018-02-20 07:11 | NUR ---
ASSUMED CONTINUITY OF CARE. NO SIGNS AND SYMPTOMS OF ACUTE DISTRESS NOTED. INITIAL ASSESSMENT DONE. RE-ORIENTED TO EVENTS AND SURROUNDINGS. REFUSED IV INSERTION. FALL PRECAUTION APPLIED. CALL LIGHT WITHIN REACH.
--- NOTE | 2018-02-20 07:11 | NUR ---
ENDORSED REPORT TO DAYSHIFT NURSE AT BEDSIDE FOR CONTINUITY OF CARE.
[2018-02-20 08:00] VITALS: BP 148/77
--- NOTE | 2018-02-20 08:00 | NUR ---
Patient's Plan of Care was discussed and reviewed with CAR WORKER: MEAGAN
[2018-02-20] MEDS: risperiDONE 1 MG TAB PO SCH ×2 (08:42→21:24)
[2018-02-20] MEDS: metFORMIN 850 MG TAB PO SCH ×2 (08:42→17:47)
[2018-02-20] MEDS: DIVALPROEX 500 MG TABEC PO SCH ×2 (08:42→21:24)
[2018-02-20] MEDS: LISINOPRIL 5 MG TAB PO SCH (08:44)
--- NOTE | 2018-02-20 09:28 | NUR ---
AMBULATES ON HALLWAY WITH FRONT WHEEL WALKER. TOLERATED WELL. NO C/O PAIN. NO SOB, NOTED. KEEP FREE FROM INJURY.
--- NOTE | 2018-02-20 09:55 | NUR ---
PT. BACK TO ROOM. NO C/O PAIN. NO SOB, NOTED. KEEP COMFORTABLE ON BED. ASKED TO CALL NURSE IF NEEDS HELP. VERBALIZED UNDERSTANDING. CALL LIGHT WITHIN REACH.
[2018-02-20 12:00] VITALS: BP 129/67
--- NOTE | 2018-02-20 13:30 | NUR ---
AMBULATES ON HALLWAY WITH FRONT WHEEL WALKER. TOLERATED WELL. NO SOB, NOTED. KEEP FREE FROM FALL.
--- NOTE | 2018-02-20 19:18 | NUR ---
REPORT GIVEN TO TRACY LARA. IN STABLE CONDITION. PT. CURRENTLY AMBULATING WITH FWW AROUND [facility] [place] NURSE STATION.
--- NOTE | 2018-02-20 19:30 | NUR ---
RECEIVED REPORT FROM DAY SHIFT NURSE MEAGAN, PATIENT WALKING IN THE [place] WAY WITH HIS CRUTCHES, NO S/S OF DISTRESS NOTED, RESPIRATION EVEN AND UNLABORED, ASKED PATIENT IF HE COULD GO BACK TO HIS ROOM, PATIENT NOD. WILL CONTINUE TO MONITOR.
--- NOTE | 2018-02-20 19:57 | NUR ---
PATIENT IS BACK TO HIS ROOM, RESTING IN BED, NO S/S OF DISTRESS NOTED, CALL LIGHT WITHIN REACH, SAFETY MEASURE ENSURED, WILL CONTINUE TO MONITOR.
--- NOTE | 2018-02-20 23:31 | NUR ---
At this time no placement is available , will continue to make calls.
[2018-02-21] VITALS: BP 106/55
--- NOTE | 2018-02-21 00:28 | NUR ---
VITAL SIGNS STABLE, NO S/S OF DISTRESS NOTED, RESPIRATION EVEN AND UNLABORED, CALL LIGHT WITHIN REACH, SAFETY MEASURE ENSURED, WILL CONTINUE TO MONITOR.
--- NOTE | 2018-02-21 04:53 | NUR ---
Still there are no vacancy ,Will endorsed to incoming shift to continue to look for placement .
[2018-02-21] MEDS: BLOOD GLUCOSE MONITORING 1 DEV DEV FS SCH ×4 (06:31→21:03)
--- NOTE | 2018-02-21 07:12 | NUR ---
ASSUMED CONTINUITY OF CARE. NO SIGNS AND SYMPTOMS OF ACUTE DISTRESS NOTED. INITIAL ASSESSMENT DONE. RE-ORIENTED TO EVENTS AND SURROUNDINGS AND KEEP COMFORTABLE ON BED. FALL PRECAUTION APPLIED. CALL LIGHT WITHIN REACH.
--- NOTE | 2018-02-21 07:15 | NUR ---
ENDORSED PLAN OF CARE TO DAY SHIFT NURSE MEAGAN. PATIENT IS IN STABLE CONDITION.
[2018-02-21 08:00] VITALS: BP 117/68
--- NOTE | 2018-02-21 08:00 | NUR ---
Patient's Plan of Care was discussed and reviewed with DYE BECK REEL OPERATOR: MEAGAN
[2018-02-21] MEDS: risperiDONE 1 MG TAB PO SCH ×2 (08:39→21:01)
[2018-02-21] MEDS: metFORMIN 850 MG TAB PO SCH ×2 (08:39→17:21)
[2018-02-21] MEDS: LISINOPRIL 5 MG TAB PO SCH (08:39)
[2018-02-21] MEDS: DIVALPROEX 500 MG TABEC PO SCH ×2 (08:39→21:01)
--- NOTE | 2018-02-21 11:45 | NUR ---
WATCHING TV AT THIS TIME. NO DISCOMFORT NOTICED. CALL LIGHT WITHIN REACH.
[2018-02-21 12:00] VITALS: BP 144/79
--- NOTE | 2018-02-21 15:37 | NUR ---
SLEEPING COMFORTABLY ON BED. NO DIFFICULTY BREATHING NOTICED. KEEP FREE FROM FALL. CALL LIGHT WITHIN REACH.
--- NOTE | 2018-02-21 16:35 | NUR ---
02/21/18 RD FOLLOW UP COMPLETED PLEASE REFER TO NUTRITION ASSESSMENT UNDER CARE ACTIVITY FOR ESTIMATED NUTRITIONAL NEEDS. 1. CONTINUE CCHO 60 GM DIET TOLERATED 2. RD TO FOLLOW-UP 5-7 DAYS, LOW RISK NOHEMY AYERS RD
--- NOTE | 2018-02-21 19:05 | NUR ---
RECEIVED BEDSIDE REPORT FROM DAY SHIFT NURSE MEAGAN. PT AWAKE SITTING UP. NO SIGNS OF DISTRESS. INTRODUCED SELF EXPLAINED PLAN OF CARE. PT STABLE AT THIS TIME. WILL CONTINUE TO MONITOR. Addendum: 02/21/18 at 1924 by Maribel Rodriguez RN INITIAL ASSESSMENT DONE, AWAKE AND ALERT, PT ON ROOM AIR, NO SOB, RIGHT ERIKA GLASS AT BEDSIDE, SKIN IS INTACT, NO IV ACCESS PT REFUSED. ALL SAFETY PRECAUTIONS MET.
--- NOTE | 2018-02-21 19:06 | NUR ---
BEDSIDE REPORT GIVEN TO MAYKEL LARA. IN STABLE CONDITION.
--- NOTE | 2018-02-21 21:03 | NUR ---
DUE MEDICATIONS GIVEN, PT TOLERATED WELL, WILL CONTINUE TO MONITOR, CALL LIGHT WITHIN REACH.
--- NOTE | 2018-02-21 23:30 | NUR ---
PT RESTING IN BED, NO SIGNS OF DISTRESS, V/S TAKEN AND NO ABNORMALITIES NOTED, CALL LIGHT WITHIN REACH, WILL CONTINUE TO MONITOR.
[2018-02-22] VITALS: BP 117/75
--- NOTE | 2018-02-22 01:28 | NUR ---
PT SLEEPING IN BED NO SIGNS OF DISTRESS, CALL LIGHT WITHIN REACH, BED IN LOWEST POSITION, WILL CONTINUE TO MONITOR AND CONTINUE FREQ CHECKS.
--- NOTE | 2018-02-22 03:30 | NUR ---
PT IN BED, NO SIGNS OF DISTRESS, CALL LIGHT WITHIN REACH, WILL CONTINUE TO MONITOR.
--- NOTE | 2018-02-22 05:35 | NUR ---
PT RESTING IN BED, ACCU CHECK, BLOOD GLUCOSE 110. NO INSULIN NEEDED, WILL CONTINUE TO MONITOR, CALL LIGHT WITHIN REACH.
[2018-02-22] MEDS: BLOOD GLUCOSE MONITORING 1 DEV DEV FS SCH ×5 (06:47→20:19)
--- NOTE | 2018-02-22 07:30 | NUR ---
ENDORSED PT TO DAY SHIFT NURSE, MARCOS, PT IS STABLE AT THIS TIME.
--- NOTE | 2018-02-22 07:31 | NUR ---
RECEIVED REPORT FROM PM NURSE. PT SITING ON BED. NO SIGH ON DISTRESS. INTRODUCED SELF AND UPDATED BOARD. BED ON LOW POSITION, SIDE RAILS UP. WILL CONTINUE TO MONITOR PT.
[2018-02-22 08:00] VITALS: BP 148/76
[2018-02-22] MEDS: LISINOPRIL 5 MG TAB PO SCH (09:35)
[2018-02-22] MEDS: risperiDONE 1 MG TAB PO SCH ×2 (09:36→20:17)
[2018-02-22] MEDS: DIVALPROEX 500 MG TABEC PO SCH ×2 (09:36→20:17)
[2018-02-22] MEDS: metFORMIN 850 MG TAB PO SCH ×2 (09:44→17:59)
[2018-02-22 16:00] VITALS: BP 120/61
--- NOTE | 2018-02-22 16:48 | NUR ---
BLOOD SUGAER FOR PT IS 103 NOT 405. IT WAS WRONG DOCUMENTATION.
--- NOTE | 2018-02-22 19:29 | NUR ---
ENDORSED TO PM NURSE FOR CONTINUITY OF CARE. PT STABLE AT THIS TIME.
--- NOTE | 2018-02-22 20:30 | NUR ---
PT TOOK MEDS WELL. OFFERED PT COFFEE. WILL CONTINUE TO MONITOR.
--- NOTE | 2018-02-22 22:41 | NUR ---
PT SLEEPING. NO SOB. NO S/S OF DISTRESS WILL CONTINUE TO MONITOR.
[2018-02-23] VITALS: BP 101/55
--- NOTE | 2018-02-23 | NUR ---
PT SLEEPING NO SOB NO S/S OF DISTRESS WILL CONTINUE TO MONITOR.
--- NOTE | 2018-02-23 04:35 | NUR ---
PT SLEEPING NO SOB NO S/S OF DISTRESS WILL CONTINUE TO MONITOR.
[2018-02-23] MEDS: BLOOD GLUCOSE MONITORING 1 DEV DEV FS SCH ×4 (05:51→20:12)
--- NOTE | 2018-02-23 07:18 | NUR ---
ENDORSED REPORT TO DAYSHIFT NURSE AT BEDSIDE FOR CONTINUITY OF CARE.
--- NOTE | 2018-02-23 07:20 | NUR ---
RECEIVED REPORT FROM VIDEO GAME ANIMATOR RN. PATIENT IS RESTING IN BED, IN STABLE CONDITION. NO COMPLAINTS OF PAIN. RIGHT BKA NOTED. LUNGS CTA IN ALL CHAMBERS. HEART RHYTHM IS REGULAR. ABDOMEN IS SOFT AND NON-DISTENDED. PATIENT AMBULATES WITH WALKER. SKIN IS INTACT. CURRENTLY AWAITING PSYCH PLACEMENT. ALL SAFETY MEASURES IN PLACE. CALL LIGHT WITHIN REACH, BED IN LOWEST POSITION. WILL CONTINUE TO MONITOR.
[2018-02-23 08:00] VITALS: BP 137/71
[2018-02-23] MEDS: risperiDONE 1 MG TAB PO SCH ×2 (08:18→20:08)
[2018-02-23] MEDS: metFORMIN 850 MG TAB PO SCH ×2 (08:18→16:55)
[2018-02-23] MEDS: DIVALPROEX 500 MG TABEC PO SCH ×2 (08:18→20:08)
[2018-02-23] MEDS: LISINOPRIL 5 MG TAB PO SCH (08:19)
--- NOTE | 2018-02-23 09:40 | NUR ---
PATIENT AMBULATING IN [facility] HALLWAYS USING WALKER. IN STABLE CONDITION. WILL CONTINUE TO MONITOR.
--- NOTE | 2018-02-23 12:15 | NUR ---
PATIENT IS RESTING IN CHAIR, IN STABLE CONDITION WITH NO COMPLAINTS OF PAIN. WILL CONTINUE TO MONITOR.
--- NOTE | 2018-02-23 15:30 | NUR ---
PATIENT HAD BM. ALL SAFETY MEASURES IN PLACE. WILL CONTINUE TO MONITOR.
[2018-02-23 16:00] VITALS: BP 140/59
--- NOTE | 2018-02-23 17:05 | NUR ---
PATIENT'S BLOOD GLUCOSE IS 108. NO INSULIN COVERAGE NEEDED. PATIENT IS IN STABLE CONDITION WITH NO COMPLAINTS OF PAIN. WILL CONTINUE TO MONITOR.
--- NOTE | 2018-02-23 19:22 | NUR ---
ENDORSED PLAN OF CARE TO HEALTH PRACTICE MANAGER RN. PATIENT IS IN STABLE CONDITION.
--- NOTE | 2018-02-23 22:00 | NUR ---
PT SLEEPING. NO SOB. NO S/S OF DISTRESS. WILL CONTINUE TO MONITOR.
[2018-02-24] VITALS: BP 106/73
--- NOTE | 2018-02-24 02:34 | NUR ---
PT SLEEPING NO SOB NO S/S OF DISTRESS. WILL CONTINUE TO MONITOR.
[2018-02-24] MEDS: BLOOD GLUCOSE MONITORING 1 DEV DEV FS SCH ×4 (05:41→21:54)
--- NOTE | 2018-02-24 07:17 | NUR ---
ENDORSED REPORT TO LUCILA ORTIZ AT BEDSIDE FOR CONTINUITY OF CARE.
--- NOTE | 2018-02-24 07:20 | NUR ---
RECEIVED REPORT FROM COLD TYPE COMPOSING MACHINE OPERATOR RN. PATIENT IS AWAKE AND SITTING IN BED. NO COMPLAINTS OF PAIN OR DISCOMFORT. RIGHT BKA NOTED. PATIENT IS AMBULATORY. SKIN IS INTACT. LUNGS CTA IN ALL CHAMBERS. HEART RHYTHM IS REGULAR. ALL SAFETY MEASURES IN PLACE. BED IN LOWEST POSITION AND CALL LIGHT WITHIN REACH. WILL CONTINUE TO MONITOR.
[2018-02-24 08:00] VITALS: BP 98/59
[2018-02-24] MEDS: risperiDONE 1 MG TAB PO SCH ×2 (08:27→21:52)
[2018-02-24] MEDS: DIVALPROEX 500 MG TABEC PO SCH ×2 (08:27→21:52)
[2018-02-24] MEDS: metFORMIN 850 MG TAB PO SCH ×2 (08:27→17:55)
[2018-02-24] MEDS: LISINOPRIL 5 MG TAB PO SCH (08:28)
--- NOTE | 2018-02-24 10:00 | NUR ---
PATIENT AMBULATING IN [facility] HALLWAYS WITH WALKER. NO COMPLAINTS OF PAIN OR SIGNS OF DISTRESS. WILL CONTINUE TO MONITOR.
--- NOTE | 2018-02-24 13:37 | NUR ---
PATIENT RESTING IN BED, WATCHING TV. NO COMPLAINTS OF PAIN. NO SIGNS OR SYMPTOMS OF DISTRESS. ALL SAFETY MEASURES IN PLACE. WILL CONTINUE TO MONITOR.
[2018-02-24 16:00] VITALS: BP 102/70
--- NOTE | 2018-02-24 16:14 | NUR ---
GAVE REPORT TO BOOGIE HAYWOOD FOR CONTINUITY OF CARE. PATIENT IN ROOM WATCHING TV. IN STABLE CONDITION.
--- NOTE | 2018-02-24 17:00 | NUR ---
PT WALKING AROUND IN HALLWAY WITH WALKER WITH STEADY GAIT, PATIENT DENIES ANY PAIN, PT WANTS TO GO OUT TO SMOKE, EXPLAINED THAT SMOKING IS NOT ALLOWED ON THE HOSPITAL GROUND, BEDSIDE GLUCOSE 98, NO INSULIN NEEDED, WILL CONTINUE TO MONITOR.
--- NOTE | 2018-02-24 19:30 | NUR ---
REPORT GIVEN TO DAVID HYMAN, PT IN STABLE CONDITION.
--- NOTE | 2018-02-24 19:35 | NUR ---
RECEIVED FROM AM RN IN BED SLEEPING. REFUSING TO TALK AT THIS TIME. PER AM RN PT. ABLE TO AMBULATE IN HALLWAY WITH CRUTCHES WELL. NO SOB. NO PAIN S/S NOTED. CALL LIGHT WITH IN REACH. AFEBRILE.
--- NOTE | 2018-02-24 21:00 | NUR ---
PT. AWAKE AT THIS TIME. REQUESTED FOR COFFEE AND JUICE. PROVIDED WITH WATER. PT. ABLE TO VERBALIZE SIMPLE NEEDS. DISORIENTED AT TIMES. UNABLE TO RECALL WHERE HE WAS BORN. RE-ORIENTED TO CALL LIGHT USE FOR ANY HELP HE MAY NEED. NOTICED PT. ABLE TO GO RESTROOM BY USING A FOUR WHEEL WALKER.
--- NOTE | 2018-02-24 23:44 | NUR ---
PT. SLEEPING AT THIS TIME. CALL LIGHT WITH IN REACH. NO SOB. NO RESTLESSNESS NOTED.
[2018-02-25 00:39] VITALS: BP 100/68
--- NOTE | 2018-02-25 04:23 | NUR ---
PT. AWAKE AT THIS TIME AND WALKING AROUND HIS ROOM AND HALLWAY. PT. PROVIDED WITH SNACK. NO COMPLAINTS DONE. ABLE TO VERBALIZE NEEDS WELL. DENIES ANY PAIN.
[2018-02-25] MEDS: BLOOD GLUCOSE MONITORING 1 DEV DEV FS SCH ×2 (05:42→11:48)
--- NOTE | 2018-02-25 06:08 | NUR ---
PT. SITTING UP IN CHAIR AT THIS TIME WATCHING TV. GOOD AFFECT. SMILING. BLOOD SUGAR CHECK DONE. WNL. NO INSULIN COVERAGE. ABLE TO VERBALIZE SIMPLE NEEDS.
--- NOTE | 2018-02-25 07:00 | NUR ---
RECEIVED BEDSIDE REPORT FROM LONG TERM NURSE. PATIENT IS AWAKE. UNABLE TO STATE CORRECT INFORMATION SUCH NAME, , WHERE HE IS AND DATE. PATIENT HAS R BKA, SKIN IS INTACT. WALKER AT BEDSIDE. GAIT IS STEADY. HE IS CONTINENT. BED IN LOW POSITION. CALL LIGHT WITHIN REACH. WILL CONTINUE TO MONITOR THE PATIENT.
[2018-02-25 08:00] VITALS: BP 121/67
[2018-02-25] MEDS: metFORMIN 850 MG TAB PO SCH (08:56)
[2018-02-25] MEDS: DIVALPROEX 500 MG TABEC PO SCH (08:57)
[2018-02-25] MEDS: risperiDONE 1 MG TAB PO SCH (08:57)
[2018-02-25] MEDS: LISINOPRIL 5 MG TAB PO SCH (08:57)
--- NOTE | 2018-02-25 09:01 | NUR ---
ADMINISTERED MEDS. PATIENT TOLERATED WELL. PATIENT SITTING IN CHAIR, EATING AND WATCHING TV. WALKER NEAR PATIENT. WILL CONTINUE TO MONITOR THE PATIENT.
--- NOTE | 2018-02-25 11:00 | NUR ---
PATIENT IS SLEEPING. NO SIGNS OF DISTRESS ON ROOM AIR. BED IN LOW POSITION. CALL LIGHT WITHIN REACH. WILL CONTINUE TO MONITOR THE PATIENT.
--- NOTE | 2018-02-25 13:00 | NUR ---
PATIENT IS REQUESTING NEW PANTS BECAUSE HE POOPED IN HIS PANTS AGAIN. PATIENT WAS GIVEN NEW PANTS. NO OTHER COMPLAINTS AT THIS TIME.
--- NOTE | 2018-02-25 15:06 | NUR ---
PATIENT WANTS TO GO AMA. SECURITY BROUGHT HIS WHEELCHAIR. PATIENT LEFT WITHOUT SIGNING AMA. PATIENT LEFT, IS AWARE.
== END 2018-02-25 15:06 | disposition left against medical advice (07) | DRG 70 ==
LOC: MED 09:29 → EDBD 13:47 → MTU 13:47
PROVIDERS: ADMIT General Practice; ATTEND General Practice
DX: G93.40 Encephalopathy, unspecified (principal); N17.0 Acute kidney failure with tubular necrosis; E87.1 Hypo-osmolality and hyponatremia; D68.59 Other primary thrombophilia; F20.9 Schizophrenia, unspecified; E83.42 Hypomagnesemia; F17.210 Nicotine dependence, cigarettes, uncomplicated; I10 Essential (primary) hypertension; F79 Unspecified intellectual disabilities; E11.51 Type 2 diabetes mellitus with diabetic peripheral angiopathy without gangrene; E11.65 Type 2 diabetes mellitus with hyperglycemia; E11.69 Type 2 diabetes mellitus with other specified complication; Z59.0 Homelessness; Z89.511 Acquired absence of right leg below knee
CPT/HCPCS: 36415; 71045; 73562; 80048; 80053; 80305; 82140; 82948; 83036; 83690; 83735; 83880; 84100; 84436; 84443; 84479; 84484; 85025; 85610; 85730; 87081; 93005; 96372; 97116; 97140; 97530; 99285; G0480; G0482; J1630; J1644; J1815; Q0092